=== PATIENT | female | born 1965 | race Caucasian/White ===

== ENCOUNTER 2017-10-05 09:34 | Emergency (ER) | payer MEDICAID ==
[~2017-10-05] VITALS: Ht 149.9 cm; Wt 57.4 kg
[~2017-10-05 09:34] MED LIST: ALBU18HF2 IH; ALBU8.5H4 IH; CEPH500C5 PO; HYDR-2514 PO; MIC100VS VG; NITR100C6 PO; NO HOME MEDS; PANT40TA39 PO; PHEN-716 PO; PHEN-873 PO; PRED20TA PO; TES100C PO; TRAM50TA2 PO; [UNRECOGNIZED DRUG - REMARK]
[2017-10-05] MEDS ORDERED: PRED20TA PO (10:01)
[2017-10-05] MEDS ORDERED: ALBU6.7H INH (10:01)
[2017-10-05] MEDS ORDERED: BENZ-38 PO (10:01)
[2017-10-05 10:11] VITALS: BP 124/89
== END 2017-10-05 10:12 | disposition home or self-care (01) ==
LOC: ER 09:35
DX: J06.9 Acute upper respiratory infection, unspecified (principal); J45.909 Unspecified asthma, uncomplicated; G89.29 Other chronic pain; Z90.710 Acquired absence of both cervix and uterus; F12.10 Cannabis abuse, uncomplicated; Z88.5 Allergy status to narcotic agent; Z88.6 Allergy status to analgesic agent; Z79.899 Other long term (current) drug therapy; Z59.0 Homelessness
CPT/HCPCS: 99283

== ENCOUNTER 2018-02-07 12:46 | Emergency (ER) | payer MEDICAID ==
[~2018-02-07] VITALS: Ht 502.6 cm; Wt 59.1 kg
[~2018-02-07 12:46] MED LIST changes: +ALBU6.7H INH; +BACDS PO; +PHEN-786 PO; -PHEN-873 PO
[2018-02-07 13:22] LABS: CLARITY,URINE TURBID (Clear); COLOR,URINE YELLOW (Yellow); GLUCOSE, URINE NEGATIVE (Neg); KETONES,URINE NEGATIVE (Neg); LEUKOCYTE ESTERASE ,URINE MODERATE (Neg); NITRITES, URINE NEGATIVE (Neg); OCCULT BLOOD,URINE LARGE (Neg); PROTEIN,URINE 30 mg/dl (Neg); UROBILINOGEN,URINE 0.2 E.U/dL (0.2-1.0)
[2018-02-07 13:27] LABS: UA COLLECTION TYPE CLN CATCH MIDSTREAM
[2018-02-07 13:35] LABS: MUCUS STRANDS FEW /LPF (Neg); SQUAMOUS EPITHELIAL CELL,UR FEW /LPF (FEW); TRANSITIONAL EPI CELLS,URINE FEW /HPF; WBC,URINE TNTC /HPF (0-4)
[2018-02-07] MEDS ORDERED: phenazopyridine 100mg tablet PO ONE (13:35)
[2018-02-07] MEDS ORDERED: HYDROcodone/acetaminophen 5mg/325mg tablet PO ONE (13:35)
[2018-02-07] MEDS ORDERED: ondansetron 4mg rapidly disintigrating tab PO ONE (13:35)
[2018-02-07 13:36] LABS: BACTERIA,URINE FEW /HPF (Neg); RBC,URINE 20-50 /HPF (0-2); WBC CLUMPS,URINE FEW /HPF (NEGATIVE)
[2018-02-07] MEDS ORDERED: azithromycin 250mg tablet PO ONE (13:45)
[2018-02-07] MEDS ORDERED: CefTRIAXone 1000mg IM Kit (w/lidocaine diluent) IM ONE (13:45)
[2018-02-07 13:49] VITALS: BP 114/83
[2018-02-07] MEDS ORDERED: PHEN-824 PO (13:56)
[2018-02-07] MEDS ORDERED: LEVO750T21 PO (13:56)
== END 2018-02-07 14:21 | disposition home or self-care (01) ==
LOC: ER 12:47
DX: N39.0 Urinary tract infection, site not specified (principal); A64 Unspecified sexually transmitted disease; J45.909 Unspecified asthma, uncomplicated; G89.29 Other chronic pain; F12.90 Cannabis use, unspecified, uncomplicated; Z90.710 Acquired absence of both cervix and uterus; Z88.1 Allergy status to other antibiotic agents; Z88.6 Allergy status to analgesic agent; Z88.5 Allergy status to narcotic agent; Z79.2 Long term (current) use of antibiotics; Z79.899 Other long term (current) drug therapy; Z59.0 Homelessness
CPT/HCPCS: 81001; 87088; 99284; J0696

== ENCOUNTER 2018-06-21 18:51 | Emergency (ER) | payer MEDICAID ==
[~2018-06-21] VITALS: Ht 149.9 cm; Wt 63.6 kg
[~2018-06-21 18:51] MED LIST changes: -BACDS PO; +PHEN-824 PO
[2018-06-21 19:03] VITALS: BP 132/85
[2018-06-21 19:41] LABS: COLOR,URINE ORANGE (Yellow); UA COLLECTION TYPE CLN CATCH MIDSTREAM
[2018-06-21 19:42] LABS: CLARITY,URINE CLEAR (Clear)
[2018-06-21 19:52] LABS: BACTERIA,URINE 1+ /HPF (Neg); SQUAMOUS EPITHELIAL CELL,UR MODERATE /LPF (FEW); WBC,URINE TNTC /HPF (0-4)
[2018-06-21] MEDS ORDERED: CefTRIAXone 250MG IM Kit w/LIDOcaine IM ONE (20:05)
[2018-06-21] MEDS ORDERED: azithromycin 250mg tablet PO ONE (20:15)
[2018-06-21] MEDS ORDERED: NITR100C6 PO (20:16)
[2018-06-21] MEDS ORDERED: AZIT-63 PO (20:27)
[2018-06-21] MEDS ORDERED: ACET-2119 PO (20:27)
[2018-06-21 20:28] LABS: URINE HCG NEGATIVE (NEG)
[2018-06-21] MEDS ORDERED: acetaminophen 325mg tablet PO ONE (20:40)
== END 2018-06-21 20:49 | disposition home or self-care (01) ==
LOC: ER 18:52
DX: N73.9 Female pelvic inflammatory disease, unspecified (principal); J45.909 Unspecified asthma, uncomplicated; G89.29 Other chronic pain; F12.90 Cannabis use, unspecified, uncomplicated; Z90.710 Acquired absence of both cervix and uterus; Z88.1 Allergy status to other antibiotic agents; Z88.5 Allergy status to narcotic agent; Z88.6 Allergy status to analgesic agent; Z79.899 Other long term (current) drug therapy; Z59.0 Homelessness
CPT/HCPCS: 36415; 81001; 81025; 87088; 87491; 87591; 96372; 99283; J0696

== ENCOUNTER 2018-09-20 14:40 | Emergency (ER) | payer MEDICAID ==
[~2018-09-20] VITALS: Ht 149.9 cm; Wt 86.4 kg
[2018-09-20 14:46] VITALS: BP 115/85
[2018-09-20] MEDS ORDERED: morphine 4 MG/ML inj SYRINge IM ONE (15:20)
[2018-09-20 15:51] LABS: BASOPHILS % (AUTO) 0.2 % (0-1); EOSINOPHILS # (AUTO) 0.1 X10'3 (0-0.9); EOSINOPHILS % (AUTO) 2.4 % (0-6); HEMATOCRIT 36.5 % (35.0-45.0); HEMOGLOBIN 11.9 g/dl (12.0-16.0); LYMPHOCYTES # (AUTO) 1.4 X10'3 (1.1-4.8); LYMPHOCYTES % (AUTO) 26.8 % (21-51); MEAN CORPUSCULAR HEMOGLOBIN 26.7 PG (27.0-31.0); MEAN CORPUSCULAR HGB CONC 32.6 g/dL (33.0-36.5); MEAN CORPUSCULAR VOLUME 81.7 FL (78-98); MONOCYTES # (AUTO) 0.6 X10'3 (0-0.9); MONOCYTES % (AUTO) 10.7 % (2-12); NEUTROPHILS # (AUTO) 3.2 X10'3 (1.8-7.7); NEUTROPHILS % (AUTO) 59.9 % (42-75); PLATELET COUNT 295 X10'3 (140-440); RED BLOOD COUNT 4.47 X10'6 (4.20-5.60); RED CELL DISTRIBUTION WIDTH 17.5 % (11.5-14.5); WHITE BLOOD COUNT 5.3 X10'3 (4.5-11.0)
[2018-09-20 15:51] LABS: URINE HCG NEGATIVE (NEG)
--- NOTE | 2018-09-20 15:57 | NUR ---
C/O PAIN X 1 MONTH, GETTING WORSE FOR THE PAST COUPLE OF DAYS. PAIN IN BLADDER TO UPPER ABDOMEN.
[2018-09-20 16:06] LABS: CLARITY,URINE CLOUDY (Clear); COLOR,URINE YELLOW (Yellow); GLUCOSE, URINE NEGATIVE (Neg); KETONES,URINE NEGATIVE (Neg); LEUKOCYTE ESTERASE ,URINE MODERATE (Neg); NITRITES, URINE NEGATIVE (Neg); OCCULT BLOOD,URINE TRACE-INTACT (Neg); PROTEIN,URINE NEGATIVE (Neg); UROBILINOGEN,URINE 0.2 E.U/dL (0.2-1.0)
[2018-09-20 16:10] LABS: ALANINE AMINOTRANSFERASE 39 U/L (12-78); ALBUMIN 3.3 G/DL (3.4-5.0); ALBUMIN/GLOBULIN RATIO 1.1 (1.1-1.5); ALKALINE PHOSPHATASE 96 IU/L (46-116); ANION GAP 6 (8-16); ASPARTATE AMINO TRANSFERASE 22 U/L (10-37); BILIRUBIN,TOTAL 0.2 MG/DL (0.1-1.0); BLOOD UREA NITROGEN 16 MG/DL (7-18); BUN/CREATININE RATIO 21.1 (6.6-38.0); CALCIUM 9.1 MG/DL (8.5-10.1); CHLORIDE 106 MMOL/L (99-107); CREATININE 0.76 MG/DL (0.40-0.90); GLUCOSE 90 MG/DL (70-104); POTASSIUM 4.2 MMOL/L (3.5-5.1); SODIUM 140 MMOL/L (135-145); TOTAL CARBON DIOXIDE 27.7 MMOL/L (24-32); TOTAL PROTEIN 6.3 G/DL (6.4-8.2); eGFR 80 ML/MIN
[2018-09-20 16:10] LABS: UA COLLECTION TYPE CLN CATCH MIDSTREAM
[2018-09-20] MEDS ORDERED: CEPH-572 PO (16:22)
[2018-09-20] MEDS ORDERED: FLUC150T PO (16:22)
[2018-09-20 16:42] LABS: SQUAMOUS EPITHELIAL CELL,UR FEW /LPF (FEW)
[2018-09-20 16:43] LABS: MUCUS STRANDS FEW /LPF (Neg); WBC CLUMPS,URINE MANY /HPF (NEGATIVE); WBC,URINE 30-50 /HPF (0-4)
[2018-09-20 16:44] LABS: BACTERIA,URINE FEW /HPF (Neg); RBC,URINE 0-2 /HPF (0-2)
== END 2018-09-20 16:48 | disposition home or self-care (01) ==
LOC: ER 14:42
DX: N20.0 Calculus of kidney (principal); K57.30 Diverticulosis of large intestine without perforation or abscess without bleeding; N39.0 Urinary tract infection, site not specified; R10.84 Generalized abdominal pain; J45.909 Unspecified asthma, uncomplicated; G89.29 Other chronic pain; F12.90 Cannabis use, unspecified, uncomplicated; Z59.0 Homelessness; Z98.890 Other specified postprocedural states; Z90.710 Acquired absence of both cervix and uterus; Z88.1 Allergy status to other antibiotic agents; Z88.6 Allergy status to analgesic agent; Z88.8 Allergy status to other drugs, medicaments and biological substances; Z79.899 Other long term (current) drug therapy
CPT/HCPCS: 36415; 74176; 80053; 81001; 81025; 85025; 87088; 96372; 99284; J2270; 99283

== ENCOUNTER 2018-10-11 13:48 | Emergency (ER) | payer MEDICAID ==
[~2018-10-11] VITALS: Ht 149.9 cm; Wt 65.3 kg
[~2018-10-11 13:48] MED LIST changes: -CEPH500C5 PO
[2018-10-11 17:37] LABS: CLARITY,URINE SLIGHTLY CLOUDY (Clear); COLOR,URINE YELLOW (Yellow); GLUCOSE, URINE NEGATIVE (Neg); KETONES,URINE NEGATIVE (Neg); LEUKOCYTE ESTERASE ,URINE SMALL (Neg); NITRITES, URINE NEGATIVE (Neg); OCCULT BLOOD,URINE SMALL (Neg); PROTEIN,URINE NEGATIVE (Neg); UROBILINOGEN,URINE 0.2 E.U/dL (0.2-1.0)
[2018-10-11 17:39] LABS: UA COLLECTION TYPE CLN CATCH MIDSTREAM
[2018-10-11 17:45] LABS: BACTERIA,URINE 1+ /HPF (Neg); HYALINE CASTS 0-3 /LPF (NEGATIVE); SQUAMOUS EPITHELIAL CELL,UR FEW /LPF (FEW); WBC CLUMPS,URINE FEW /HPF (NEGATIVE); WBC,URINE 50-100 /HPF (0-4)
[2018-10-11 17:46] LABS: CAL OXALATE CRYSTALS FEW /HPF (NEGATIVE)
[2018-10-11] MEDS ORDERED: morphine 4 MG/ML inj SYRINge IM ONE (18:05)
[2018-10-11] MEDS ORDERED: CefTRIAXone 1000mg IM Kit (w/lidocaine diluent) IM ONE (18:05)
[2018-10-11] MEDS ORDERED: LIDOcaine Viscous 15ml cup MM ONE (18:05)
[2018-10-11 18:21] VITALS: BP 120/79
[2018-10-11] MEDS ORDERED: CIPR-230 PO (19:39)
[2018-10-11] MEDS ORDERED: PHEN-716 PO (19:39)
[2018-10-11] MEDS ORDERED: LIDO15CR11 TOP (19:39)
== END 2018-10-11 20:00 | disposition home or self-care (01) ==
LOC: ER 13:48
DX: N39.0 Urinary tract infection, site not specified (principal); J45.909 Unspecified asthma, uncomplicated; G89.29 Other chronic pain; F12.90 Cannabis use, unspecified, uncomplicated; Z59.0 Homelessness; Z98.890 Other specified postprocedural states; Z90.710 Acquired absence of both cervix and uterus; Z88.1 Allergy status to other antibiotic agents; Z88.6 Allergy status to analgesic agent; Z88.5 Allergy status to narcotic agent; Z79.899 Other long term (current) drug therapy
CPT/HCPCS: 74176; 81001; 87088; 96372; 99284; J0696; J2270

== ENCOUNTER 2019-02-11 16:01 | Emergency (ER) | payer MEDICAID ==
[~2019-02-11] VITALS: Ht 149.9 cm; Wt 62.0 kg
[~2019-02-11 16:01] MED LIST changes: -ALBU6.7H INH; +ALBU6.7H9 INH; +CEPH-571 PO; +LIDO15CR11 TOP
[2019-02-11 16:09] VITALS: BP 114/68
[2019-02-11 16:30] LABS: CLARITY,URINE SLIGHTLY CLOUDY (Clear); COLOR,URINE YELLOW (Yellow); GLUCOSE, URINE NEGATIVE (Neg); KETONES,URINE TRACE mg/dl (Neg); LEUKOCYTE ESTERASE ,URINE MODERATE (Neg); NITRITES, URINE NEGATIVE (Neg); OCCULT BLOOD,URINE SMALL (Neg); PROTEIN,URINE 100 mg/dl (Neg); UROBILINOGEN,URINE 0.2 E.U/dL (0.2-1.0)
[2019-02-11 16:31] LABS: UA COLLECTION TYPE CLN CATCH MIDSTREAM
[2019-02-11 16:36] LABS: WBC,URINE TNTC /HPF (0-4)
[2019-02-11 16:37] LABS: BACTERIA,URINE FEW /HPF (Neg); MUCUS STRANDS FEW /LPF (Neg); SQUAMOUS EPITHELIAL CELL,UR FEW /LPF (FEW)
[2019-02-11 17:01] LABS: BASOPHILS % (AUTO) 0.7 % (0-1); EOSINOPHILS # (AUTO) 0.1 X10'3 (0-0.9); EOSINOPHILS % (AUTO) 2.6 % (0-6); HEMATOCRIT 37.2 % (35.0-45.0); HEMOGLOBIN 12.2 g/dl (12.0-16.0); LYMPHOCYTES # (AUTO) 1.4 X10'3 (1.1-4.8); LYMPHOCYTES % (AUTO) 28.5 % (21-51); MEAN CORPUSCULAR HEMOGLOBIN 26.8 PG (27.0-31.0); MEAN CORPUSCULAR HGB CONC 32.8 g/dL (33.0-36.5); MEAN CORPUSCULAR VOLUME 81.7 FL (78-98); MEAN PLATELET VOLUME 6.8 FL (7.4-10.4); MONOCYTES # (AUTO) 0.5 X10'3 (0-0.9); MONOCYTES % (AUTO) 9.6 % (2-12); NEUTROPHILS # (AUTO) 2.9 X10'3 (1.8-7.7); NEUTROPHILS % (AUTO) 58.6 % (42-75); PLATELET COUNT 348 X10'3 (140-440); RED BLOOD COUNT 4.56 X10'6 (4.20-5.60)
[2019-02-11] MEDS ORDERED: CefTRIAXone 250MG IM Kit w/LIDOcaine IM ONE (17:05)
[2019-02-11] MEDS ORDERED: azithromycin 250mg tablet PO ONE (17:05)
[2019-02-11 17:16] LABS: ALANINE AMINOTRANSFERASE 26 U/L (12-78); ALBUMIN 3.3 G/DL (3.4-5.0); ALBUMIN/GLOBULIN RATIO 1.1 (1.1-1.5); ALKALINE PHOSPHATASE 106 IU/L (46-116); ANION GAP 8 (8-16); ASPARTATE AMINO TRANSFERASE 14 U/L (10-37); BILIRUBIN,TOTAL 0.3 MG/DL (0.1-1.0); BLOOD UREA NITROGEN 18 MG/DL (7-18); BUN/CREATININE RATIO 21.2 (6.6-38.0); CALCIUM 9.4 MG/DL (8.5-10.1); CHLORIDE 109 MMOL/L (99-107); CREATININE 0.85 MG/DL (0.40-0.90); GLUCOSE 94 MG/DL (70-104); POTASSIUM 3.5 MMOL/L (3.5-5.1); SODIUM 144 MMOL/L (135-145); TOTAL CARBON DIOXIDE 26.6 MMOL/L (24-32); TOTAL PROTEIN 6.4 G/DL (6.4-8.2); eGFR 70 ML/MIN
[2019-02-11] MEDS ORDERED: CIPR-259 PO (17:43)
[2019-02-11 18:05] LABS: CLARITY,URINE CLOUDY (Clear); COLOR,URINE YELLOW (Yellow); GLUCOSE, URINE NEGATIVE (Neg); KETONES,URINE TRACE mg/dl (Neg); LEUKOCYTE ESTERASE ,URINE MODERATE (Neg); NITRITES, URINE NEGATIVE (Neg); OCCULT BLOOD,URINE TRACE-INTACT (Neg); PROTEIN,URINE 30 mg/dl (Neg); UROBILINOGEN,URINE 0.2 E.U/dL (0.2-1.0)
[2019-02-11 18:10] LABS: UA COLLECTION TYPE CLN CATCH MIDSTREAM
[2019-02-11 18:14] LABS: WBC,URINE TNTC /HPF (0-4)
[2019-02-11 18:18] LABS: BACTERIA,URINE FEW /HPF (Neg); MUCUS STRANDS FEW /LPF (Neg); RBC,URINE 0-2 /HPF (0-2); SQUAMOUS EPITHELIAL CELL,UR NONE SEEN /LPF (FEW)
[2019-02-11 18:19] LABS: CAL OXALATE CRYSTALS 1+ /HPF (NEGATIVE)
== END 2019-02-11 18:29 | disposition home or self-care (01) ==
LOC: ER 16:02
DX: N39.0 Urinary tract infection, site not specified (principal); J45.909 Unspecified asthma, uncomplicated; G89.29 Other chronic pain; F31.9 Bipolar disorder, unspecified; F12.90 Cannabis use, unspecified, uncomplicated; Z90.710 Acquired absence of both cervix and uterus; Z59.0 Homelessness; Z88.6 Allergy status to analgesic agent; Z88.1 Allergy status to other antibiotic agents; Z88.8 Allergy status to other drugs, medicaments and biological substances
CPT/HCPCS: 36415; 80053; 81001; 85025; 87077; 87088; 87186; 87491; 87591; 96372; 99283; J0696

== ENCOUNTER 2019-02-22 04:49 | Emergency (ER) | payer MEDICAID ==
[~2019-02-22] VITALS: Ht 149.9 cm; Wt 65.6 kg
[~2019-02-22 04:49] MED LIST changes: +CIPR-259 PO
[2019-02-22] MEDS ORDERED: famotidine 20mg tablet PO ONE (05:05)
[2019-02-22] MEDS ORDERED: LIDOcaine Viscous 15ml cup PO ONE (05:05)
[2019-02-22] MEDS ORDERED: pantoprazole 40mg Tablet.DR PO ONE (05:05)
[2019-02-22] MEDS ORDERED: mag hydrox/Alum hydrox/simeth 30ml oral suspension PO ONE (05:05)
--- NOTE | 2019-02-22 05:25 | NUR ---
PT REPORTS COMPLETE RESOLUTION OF SYMPTOMS. MD FINNEGAN AT BEDSIDE FOR RE-EVALUATION.
[2019-02-22] MEDS ORDERED: PANT-47 PO (05:26)
[2019-02-22 05:33] VITALS: BP 111/73
[2019-02-28] MEDS ORDERED: ARIP5TAB14 PO (06:39)
== END 2019-02-22 05:35 | disposition home or self-care (01) ==
LOC: ER 04:50
DX: K30 Functional dyspepsia (principal); K21.9 Gastro-esophageal reflux disease without esophagitis; J45.909 Unspecified asthma, uncomplicated; G89.29 Other chronic pain; F31.9 Bipolar disorder, unspecified; F12.90 Cannabis use, unspecified, uncomplicated; Z87.442 Personal history of urinary calculi; Z90.710 Acquired absence of both cervix and uterus; Z98.890 Other specified postprocedural states; Z59.0 Homelessness; Z88.1 Allergy status to other antibiotic agents; Z88.6 Allergy status to analgesic agent; Z88.5 Allergy status to narcotic agent; Z88.8 Allergy status to other drugs, medicaments and biological substances; Z79.899 Other long term (current) drug therapy
CPT/HCPCS: 93005; 99284

== ENCOUNTER 2019-02-28 05:56 | Day surgery (SDC) | payer MEDICAID ==
[~2019-02-28] VITALS: Ht 149.9 cm; Wt 63.6 kg
[~2019-02-28 05:56] MED LIST changes: -CIPR-259 PO; +PANT-47 PO
[2019-02-28 06:20] VITALS: BP 118/90
[2019-02-28] MEDS ORDERED: fentaNYL/PF 50MCG/1 ML 2ML syringe ONE ×2 (06:36→08:20)
[2019-02-28] MEDS ORDERED: diphenhydrAMINE 50 mg/ml inj ONE (06:37)
[2019-02-28] MEDS ORDERED: MELO-102 PO (06:37)
[2019-02-28] MEDS ORDERED: MIDAZolam 5mg/5ml vial ONE ×2 (06:37→08:20)
[2019-02-28] MEDS ORDERED: FERR-119 PO (06:37)
[2019-02-28] MEDS ORDERED: LIDOcaine Viscous 15ml cup ONE ×2 (06:37→08:18)
[2019-02-28] MEDS ORDERED: ACYC400T PO (06:38)
[2019-02-28] MEDS ORDERED: CIPR-259 PO (06:39)
[2019-02-28] MEDS ORDERED: TRAZ-251 PO (06:39)
[2019-02-28] MEDS ORDERED: ARIP5TAB4 PO (06:39)
[2019-02-28] MEDS ORDERED: OMEP20TA5 PO (06:40)
[2019-02-28] MEDS ORDERED: PANT40TA4 PO (06:40)
[2019-02-28 08:46] VITALS: BP 106/60
[2019-02-28 08:56] VITALS: BP 100/57
[2019-02-28 09:06] VITALS: BP 100/69
[2019-02-28 09:16] VITALS: BP 109/70
== END 2019-02-28 09:39 | disposition home or self-care (01) ==
LOC: GI LAB 05:56
PROVIDERS: ATTEND Internal Medicine Gastroenterology
DX: Z12.11 Encounter for screening for malignant neoplasm of colon (principal); R13.10 Dysphagia, unspecified; K22.2 Esophageal obstruction; K29.50 Unspecified chronic gastritis without bleeding; K22.70 Barrett's esophagus without dysplasia; K21.0 Gastro-esophageal reflux disease with esophagitis; Z87.19 Personal history of other diseases of the digestive system
CPT/HCPCS: 43239; 43248; 45378; 99152; 99153; J1200; J2250; J3010; J7040; A4620

== ENCOUNTER 2019-04-11 10:41 | Emergency (ER) | payer MEDICAID ==
[~2019-04-11] VITALS: Ht 149.9 cm; Wt 68.0 kg
[~2019-04-11 10:41] MED LIST changes: +ACYC400T PO; -ALBU18HF2 IH; -ALBU6.7H9 INH; -ALBU8.5H4 IH; +ARIP5TAB14 PO; -CEPH-571 PO; +CIPR-259 PO; +FERR-119 PO; -HYDR-2514 PO; -LIDO15CR11 TOP; +MELO-102 PO; -MIC100VS VG; -NITR100C6 PO; -NO HOME MEDS; +OMEP20TA5 PO; -PANT-47 PO; -PANT40TA39 PO; +PANT40TA4 PO; -PHEN-716 PO; -PHEN-786 PO; -PHEN-824 PO; -PRED20TA PO; -TES100C PO; -TRAM50TA2 PO; +TRAZ-251 PO; -[UNRECOGNIZED DRUG - REMARK]
[2019-04-11 11:51] VITALS: BP 114/81
[2019-04-11] MEDS ORDERED: NYSPWD TP (12:37)
== END 2019-04-11 12:45 | disposition home or self-care (01) ==
LOC: ER 10:42
DX: S01.21XA Laceration without foreign body of nose, initial encounter (principal); J45.909 Unspecified asthma, uncomplicated; K21.9 Gastro-esophageal reflux disease without esophagitis; G89.29 Other chronic pain; F31.9 Bipolar disorder, unspecified; F12.90 Cannabis use, unspecified, uncomplicated; Z87.442 Personal history of urinary calculi; Z90.710 Acquired absence of both cervix and uterus; Z59.0 Homelessness; Z98.890 Other specified postprocedural states; Z88.1 Allergy status to other antibiotic agents; Z88.6 Allergy status to analgesic agent; Z88.5 Allergy status to narcotic agent; Z79.899 Other long term (current) drug therapy; W54.0XXA Bitten by dog, initial encounter; Y93.89 Activity, other specified; Y92.89 Other specified places as the place of occurrence of the external cause; Y99.8 Other external cause status
CPT/HCPCS: 99283

== ENCOUNTER 2019-05-24 18:11 | Emergency (ER) | payer MEDICAID ==
[~2019-05-24] VITALS: Ht 149.9 cm; Wt 80.0 kg
[~2019-05-24 18:11] MED LIST changes: +NYSPWD TP
[2019-05-24 18:27] VITALS: BP 118/60
[2019-05-24] MEDS ORDERED: LORazepam 1 MG tablet PO ONE (19:15)
[2019-05-24] MEDS ORDERED: acetaminophen 325mg tablet PO ONE (19:15)
[2019-05-24] MEDS ORDERED: predniSONE 20 mg tablet PO ONE (19:15)
[2019-05-24] MEDS ORDERED: diphenhydrAMINE 25mg capsule PO ONE (19:15)
== END 2019-05-24 20:04 | disposition home or self-care (01) ==
LOC: ER 18:11
DX: G44.209 Tension-type headache, unspecified, not intractable (principal); J45.909 Unspecified asthma, uncomplicated; K21.9 Gastro-esophageal reflux disease without esophagitis; G89.29 Other chronic pain; F31.9 Bipolar disorder, unspecified; F12.90 Cannabis use, unspecified, uncomplicated; Z90.710 Acquired absence of both cervix and uterus; Z98.890 Other specified postprocedural states; Z87.442 Personal history of urinary calculi; Z59.0 Homelessness; Z88.1 Allergy status to other antibiotic agents; Z88.5 Allergy status to narcotic agent; Z88.8 Allergy status to other drugs, medicaments and biological substances; Z79.899 Other long term (current) drug therapy
CPT/HCPCS: 99284; J7512; Q0163

== ENCOUNTER 2019-06-16 12:50 | Emergency (ER) | payer MEDICAID ==
[~2019-06-16] VITALS: Ht 149.9 cm; Wt 66.0 kg
[2019-06-16 13:17] LABS: URINE HCG NEGATIVE (NEG)
[2019-06-16 13:20] LABS: CLARITY,URINE Bloody (Clear); COLOR,URINE RED (Yellow); UA COLLECTION TYPE CLN CATCH MIDSTREAM
[2019-06-16 13:28] LABS: BACTERIA,URINE 2+ /HPF (Neg); MUCUS STRANDS NONE SEEN /LPF (Neg); RBC,URINE TNTC /HPF (0-2); SQUAMOUS EPITHELIAL CELL,UR MODERATE /LPF (FEW); WBC CLUMPS,URINE MANY /HPF (NEGATIVE); WBC,URINE TNTC /HPF (0-4)
[2019-06-16 13:31] LABS: BASOPHILS % (AUTO) 0.6 % (0-1); EOSINOPHILS # (AUTO) 0.1 X10'3 (0-0.9); EOSINOPHILS % (AUTO) 3.3 % (0-6); HEMATOCRIT 35.3 % (35.0-45.0); HEMOGLOBIN 11.5 g/dl (12.0-16.0); LYMPHOCYTES # (AUTO) 1.2 X10'3 (1.1-4.8); MEAN CORPUSCULAR HEMOGLOBIN 25.3 PG (27.0-31.0); MEAN CORPUSCULAR HGB CONC 32.6 g/dL (33.0-36.5); MEAN CORPUSCULAR VOLUME 77.8 FL (78-98); MEAN PLATELET VOLUME 6.9 FL (7.4-10.4); MONOCYTES # (AUTO) 0.6 X10'3 (0-0.9); MONOCYTES % (AUTO) 13.8 % (2-12); NEUTROPHILS # (AUTO) 2.4 X10'3 (1.8-7.7); NEUTROPHILS % (AUTO) 54.3 % (42-75); PLATELET COUNT 327 X10'3 (140-440); RED BLOOD COUNT 4.53 X10'6 (4.20-5.60); RED CELL DISTRIBUTION WIDTH 15.4 % (11.5-14.5); WHITE BLOOD COUNT 4.4 X10'3 (4.5-11.0)
[2019-06-16 13:45] LABS: ALANINE AMINOTRANSFERASE 39 U/L (12-78); ALBUMIN 3.8 G/DL (3.4-5.0); ALBUMIN/GLOBULIN RATIO 1.2 (1.1-1.5); ALKALINE PHOSPHATASE 107 IU/L (46-116); ANION GAP 8 (8-16); ASPARTATE AMINO TRANSFERASE 24 U/L (10-37); BILIRUBIN,TOTAL 0.2 MG/DL (0.1-1.0); BLOOD UREA NITROGEN 12 MG/DL (7-18); CALCIUM 9.4 MG/DL (8.5-10.1); CHLORIDE 107 MMOL/L (99-107); CREATININE 0.75 MG/DL (0.40-0.90); GLUCOSE 79 MG/DL (70-104); LIPASE 144 U/L (73-393); POTASSIUM 3.8 MMOL/L (3.5-5.1); SODIUM 143 MMOL/L (135-145); eGFR 81 ML/MIN
[2019-06-16] MEDS ORDERED: SULF1TAB49 PO (14:01)
[2019-06-16] MEDS ORDERED: acetaminophen 325mg tablet PO ONE (14:10)
[2019-06-16 14:21] VITALS: BP 114/73
[2019-06-16] MEDS ORDERED: HYDR-3965 PO (14:34)
[2019-06-16] MEDS ORDERED: ONDA4TAB6 PO (14:34)
== END 2019-06-16 14:40 | disposition home or self-care (01) ==
LOC: ER 12:51
DX: N39.0 Urinary tract infection, site not specified (principal); K44.9 Diaphragmatic hernia without obstruction or gangrene; R59.1 Generalized enlarged lymph nodes; N20.0 Calculus of kidney; J45.909 Unspecified asthma, uncomplicated; K21.9 Gastro-esophageal reflux disease without esophagitis; G89.29 Other chronic pain; F31.9 Bipolar disorder, unspecified; F12.90 Cannabis use, unspecified, uncomplicated; R07.81 Pleurodynia; Z90.710 Acquired absence of both cervix and uterus; Z98.890 Other specified postprocedural states; Z59.0 Homelessness; Z88.1 Allergy status to other antibiotic agents; Z88.5 Allergy status to narcotic agent; Z88.6 Allergy status to analgesic agent; Z79.899 Other long term (current) drug therapy
CPT/HCPCS: 36415; 74176; 80053; 81001; 81025; 83605; 83690; 85025; 87088; 99284

== ENCOUNTER 2019-06-30 06:26 | Day surgery (SDC) | payer MEDICAID ==
[~2019-06-30] VITALS: Ht 149.9 cm; Wt 70.0 kg
[~2019-06-30 06:26] MED LIST changes: +HYDR-3965 PO; +ONDA4TAB6 PO
[2019-06-30] MEDS ORDERED: fentaNYL/PF 50MCG/1 ML 2ML syringe ONE (06:32)
[2019-06-30] MEDS ORDERED: LIDOcaine Viscous 15ml cup ONE (06:32)
[2019-06-30] MEDS ORDERED: MIDAZolam 5mg/5ml vial ONE (06:32)
[2019-06-30 06:40] VITALS: BP 118/76
[2019-06-30] MEDS ORDERED: ACYC-1 PO (06:42)
[2019-06-30] MEDS ORDERED: ARIP5TAB60 PO (06:43)
[2019-06-30] MEDS ORDERED: HYDR-3194 PO (06:44)
[2019-06-30] MEDS ORDERED: OMEP20CA15 PO (06:44)
[2019-06-30] MEDS ORDERED: ONDA4TAB12 PO (06:45)
[2019-06-30] MEDS ORDERED: PANT-47 PO (06:46)
[2019-06-30 08:30] VITALS: BP 108/76
[2019-06-30 08:40] VITALS: BP 100/74
[2019-06-30 08:50] VITALS: BP 99/70
[2019-06-30 09:00] VITALS: BP 115/80
== END 2019-06-30 09:15 | disposition home or self-care (01) ==
LOC: GI LAB 06:26
PROVIDERS: ATTEND Internal Medicine Gastroenterology
DX: R13.19 Other dysphagia (principal); K22.2 Esophageal obstruction; K22.70 Barrett's esophagus without dysplasia; K21.0 Gastro-esophageal reflux disease with esophagitis; K44.9 Diaphragmatic hernia without obstruction or gangrene
CPT/HCPCS: 43239; 43248; 99152; J2250; J3010; J7040; 99153; A4620

== ENCOUNTER 2019-07-08 22:19 | Emergency (ER) | payer MEDICAID ==
[~2019-07-08] VITALS: Ht 149.9 cm; Wt 69.3 kg
[~2019-07-08 22:19] MED LIST changes: +ACYC-1 PO; -ACYC400T PO; -ARIP5TAB14 PO; +ARIP5TAB60 PO; -CIPR-259 PO; +HYDR-3194 PO; -HYDR-3965 PO; -MELO-102 PO; -NYSPWD TP; +OMEP20CA15 PO; -OMEP20TA5 PO; +ONDA4TAB12 PO; -ONDA4TAB6 PO; +PANT-47 PO; -PANT40TA4 PO; -TRAZ-251 PO
[2019-07-08 23:13] LABS: CLARITY,URINE CLOUDY (Clear); COLOR,URINE RED (Yellow); GLUCOSE, URINE NEGATIVE (Neg); KETONES,URINE NEGATIVE (Neg); LEUKOCYTE ESTERASE ,URINE SMALL (Neg); NITRITES, URINE NEGATIVE (Neg); OCCULT BLOOD,URINE LARGE (Neg); PH,URINE 6.5 (4.8-8.0); PROTEIN,URINE 100 mg/dl (Neg)
[2019-07-08 23:14] LABS: UA COLLECTION TYPE CLN CATCH MIDSTREAM
[2019-07-08 23:20] LABS: URINE HCG NEGATIVE (NEG)
[2019-07-08 23:24] LABS: BACTERIA,URINE 2+ /HPF (Neg); CAL OXALATE CRYSTALS 1+ /HPF (NEGATIVE); MUCUS STRANDS MODERATE /LPF (Neg); RBC,URINE TNTC /HPF (0-2); SQUAMOUS EPITHELIAL CELL,UR FEW /LPF (FEW)
[2019-07-08 23:31] LABS: BASOPHILS # (AUTO) 0.1 X10'3 (0-0.2); BASOPHILS % (AUTO) 1.3 % (0-1); EOSINOPHILS # (AUTO) 0.1 X10'3 (0-0.9); EOSINOPHILS % (AUTO) 3.1 % (0-6); HEMATOCRIT 31.9 % (35.0-45.0); HEMOGLOBIN 10.5 g/dl (12.0-16.0); LYMPHOCYTES # (AUTO) 1.5 X10'3 (1.1-4.8); LYMPHOCYTES % (AUTO) 38.6 % (21-51); MEAN CORPUSCULAR HEMOGLOBIN 25.3 PG (27.0-31.0); MEAN CORPUSCULAR VOLUME 76.6 FL (78-98); MEAN PLATELET VOLUME 7.1 FL (7.4-10.4); MONOCYTES # (AUTO) 0.8 X10'3 (0-0.9); MONOCYTES % (AUTO) 19.8 % (2-12); NEUTROPHILS # (AUTO) 1.5 X10'3 (1.8-7.7); NEUTROPHILS % (AUTO) 37.2 % (42-75); PLATELET COUNT 319 X10'3 (140-440); RED BLOOD COUNT 4.16 X10'6 (4.20-5.60); RED CELL DISTRIBUTION WIDTH 15.8 % (11.5-14.5)
[2019-07-08 23:40] LABS: ALANINE AMINOTRANSFERASE 31 U/L (12-78); ALBUMIN 3.4 G/DL (3.4-5.0); ALKALINE PHOSPHATASE 118 IU/L (46-116); ANION GAP 11 (8-16); ASPARTATE AMINO TRANSFERASE 23 U/L (10-37); BILIRUBIN,TOTAL 0.2 MG/DL (0.1-1.0); BLOOD UREA NITROGEN 19 MG/DL (7-18); BUN/CREATININE RATIO 23.2 (6.6-38.0); CALCIUM 9.1 MG/DL (8.5-10.1); CHLORIDE 106 MMOL/L (99-107); CREATININE 0.82 MG/DL (0.40-0.90); GLUCOSE 97 MG/DL (70-104); LIPASE 199 U/L (73-393); POTASSIUM 3.9 MMOL/L (3.5-5.1); SODIUM 142 MMOL/L (135-145); TOTAL CARBON DIOXIDE 25.2 MMOL/L (24-32); TOTAL PROTEIN 6.7 G/DL (6.4-8.2); eGFR 73 ML/MIN
[2019-07-08 23:58] LABS: TROPONIN I < 0.04 NG/ML (0.0-0.05)
[2019-07-09] MEDS ORDERED: famotidine 20mg tablet PO ONE (00:20)
[2019-07-09] MEDS ORDERED: LIDOcaine Viscous 15ml cup MM ONE (00:20)
[2019-07-09] MEDS ORDERED: mag hydrox/Alum hydrox/simeth 30ml oral suspension PO ONE (00:20)
[2019-07-09 00:47] VITALS: BP 111/66
== END 2019-07-09 00:59 | disposition home or self-care (01) ==
LOC: ER 22:20
DX: K44.9 Diaphragmatic hernia without obstruction or gangrene (principal); J45.909 Unspecified asthma, uncomplicated; K21.9 Gastro-esophageal reflux disease without esophagitis; G89.29 Other chronic pain; F31.9 Bipolar disorder, unspecified; F12.90 Cannabis use, unspecified, uncomplicated; Z90.710 Acquired absence of both cervix and uterus; Z98.890 Other specified postprocedural states; Z59.0 Homelessness; Z88.5 Allergy status to narcotic agent; Z88.1 Allergy status to other antibiotic agents; Z88.8 Allergy status to other drugs, medicaments and biological substances
CPT/HCPCS: 36415; 80053; 81001; 81025; 83690; 84484; 85025; 87088; 93005; 99284

== ENCOUNTER 2019-07-12 14:35 | Emergency (ER) | payer MEDICAID ==
[~2019-07-12] VITALS: Ht 149.9 cm; Wt 69.5 kg
[2019-07-12 15:23] LABS: BASOPHILS % (AUTO) 0.9 % (0-1); EOSINOPHILS % (AUTO) 0 % (0-6); MEAN CORPUSCULAR VOLUME 75.7 FL (78-98); MONOCYTES # (AUTO) 0.7 X10'3 (0-0.9); PLATELET COUNT 248 X10'3 (140-440); WHITE BLOOD COUNT 3.3 X10'3 (4.5-11.0)
[2019-07-12 15:24] LABS: HEMATOCRIT 32.9 % (35.0-45.0); HEMOGLOBIN 10.8 g/dl (12.0-16.0); LYMPHOCYTES % (AUTO) 30.4 % (21-51); MEAN CORPUSCULAR HEMOGLOBIN 24.9 PG (27.0-31.0); MEAN CORPUSCULAR HGB CONC 32.9 g/dL (33.0-36.5); MEAN PLATELET VOLUME 7.1 FL (7.4-10.4); MONOCYTES % (AUTO) 21.5 % (2-12); NEUTROPHILS # (AUTO) 1.5 X10'3 (1.8-7.7); NEUTROPHILS % (AUTO) 47.2 % (42-75); RED BLOOD COUNT 4.35 X10'6 (4.20-5.60)
[2019-07-12 15:39] LABS: ALANINE AMINOTRANSFERASE 45 U/L (12-78); ALBUMIN 3.6 G/DL (3.4-5.0); ALBUMIN/GLOBULIN RATIO 1.1 (1.1-1.5); ALKALINE PHOSPHATASE 104 IU/L (46-116); ANION GAP 12 (8-16); ASPARTATE AMINO TRANSFERASE 53 U/L (10-37); BILIRUBIN,TOTAL 0.2 MG/DL (0.1-1.0); BLOOD UREA NITROGEN 17 MG/DL (7-18); BUN/CREATININE RATIO 15.9 (6.6-38.0); CHLORIDE 102 MMOL/L (99-107); CREATININE 1.07 MG/DL (0.40-0.90); GLUCOSE 88 MG/DL (70-104); LIPASE 374 U/L (73-393); POTASSIUM 3.2 MMOL/L (3.5-5.1); SODIUM 138 MMOL/L (135-145); TOTAL CARBON DIOXIDE 23.6 MMOL/L (24-32); TOTAL PROTEIN 6.9 G/DL (6.4-8.2); eGFR 54 ML/MIN
[2019-07-12 15:51] LABS: URINE HCG NEGATIVE (NEG)
[2019-07-12 16:00] LABS: ANISOCYTOSIS 1+; PLATELET ESTIMATE NORMAL; TOTAL CELLS COUNTED 100
[2019-07-12 16:01] LABS: GIANT PLATELET FEW; MICROCYTOSIS 1+
[2019-07-12 16:24] LABS: CLARITY,URINE BLOODY (Clear); COLOR,URINE RED (Yellow); UA COLLECTION TYPE CLN CATCH MIDSTREAM
[2019-07-12 16:29] LABS: RBC,URINE TNTC /HPF (0-2); WBC,URINE 30-50 /HPF (0-4)
[2019-07-12 16:31] LABS: BACTERIA,URINE 1+ /HPF (Neg); MUCUS STRANDS FEW /LPF (Neg); SQUAMOUS EPITHELIAL CELL,UR FEW /LPF (FEW)
[2019-07-12] MEDS ORDERED: morphine 4 MG/ML inj SYRINge IM ONE (19:20)
[2019-07-12] MEDS ORDERED: loperamide 2mg capsule PO ONE (19:20)
[2019-07-12] MEDS ORDERED: ondansetron 4mg rapidly disintigrating tab PO ONE (19:20)
[2019-07-12] MEDS ORDERED: HYDR-3965 PO (19:59)
[2019-07-12] MEDS ORDERED: LOPE2CAP PO (19:59)
[2019-07-12] MEDS ORDERED: ONDA8TAB6 PO (19:59)
[2019-07-12 21:05] VITALS: BP 108/65
== END 2019-07-12 21:06 | disposition home or self-care (01) ==
LOC: ER 14:36
DX: K52.9 Noninfective gastroenteritis and colitis, unspecified (principal); R10.84 Generalized abdominal pain; J45.909 Unspecified asthma, uncomplicated; K21.9 Gastro-esophageal reflux disease without esophagitis; G89.29 Other chronic pain; F12.90 Cannabis use, unspecified, uncomplicated; Z59.0 Homelessness; Z98.890 Other specified postprocedural states; Z90.710 Acquired absence of both cervix and uterus; Z87.442 Personal history of urinary calculi; Z88.1 Allergy status to other antibiotic agents; Z88.6 Allergy status to analgesic agent; Z88.5 Allergy status to narcotic agent; Z79.899 Other long term (current) drug therapy
CPT/HCPCS: 36415; 80053; 81001; 81025; 83690; 85025; 87077; 87088; 87186; 96372; 99283; J2270

== ENCOUNTER 2019-08-08 09:26 | Emergency (ER) | payer MEDICAID ==
[~2019-08-08] VITALS: Ht 149.9 cm; Wt 66.1 kg
[~2019-08-08 09:26] MED LIST changes: +HYDR-3965 PO; +LOPE2CAP PO; +ONDA8TAB6 PO
[2019-08-08 09:27] VITALS: BP 118/83
== END 2019-08-08 10:26 | disposition home or self-care (01) ==
LOC: ER 09:26
DX: N64.4 Mastodynia (principal); J45.909 Unspecified asthma, uncomplicated; K21.9 Gastro-esophageal reflux disease without esophagitis; G89.29 Other chronic pain; F12.90 Cannabis use, unspecified, uncomplicated; Z59.0 Homelessness; Z98.890 Other specified postprocedural states; Z90.710 Acquired absence of both cervix and uterus; Z87.442 Personal history of urinary calculi; Z88.1 Allergy status to other antibiotic agents; Z88.6 Allergy status to analgesic agent; Z88.5 Allergy status to narcotic agent; Z79.899 Other long term (current) drug therapy
CPT/HCPCS: 99281

== ENCOUNTER 2019-09-05 00:50 | Inpatient (IN) | payer MEDICAID ==
[~2019-09-05] VITALS: Ht 147.3 cm; Wt 69.4 kg
[~2019-09-05 00:50] MED LIST changes: -HYDR-3965 PO
[2019-09-05 01:32] LABS: CLARITY,URINE SLIGHTLY CLOUDY (Clear); COLOR,URINE STRAW (Yellow); GLUCOSE, URINE NEGATIVE (Neg); KETONES,URINE NEGATIVE (Neg); LEUKOCYTE ESTERASE ,URINE MODERATE (Neg); NITRITES, URINE NEGATIVE (Neg); OCCULT BLOOD,URINE TRACE-INTACT (Neg); PH,URINE 6.5 (4.8-8.0); PROTEIN,URINE TRACE mg/dl (Neg); UROBILINOGEN,URINE 0.2 E.U/dL (0.2-1.0)
[2019-09-05 01:51] LABS: UA COLLECTION TYPE NON-SPECIFIED
[2019-09-05 01:53] LABS: BACTERIA,URINE FEW /HPF (Neg); RBC,URINE NONE SEEN /HPF (0-2); RENAL CELLS, URINE FEW /HPF; SQUAMOUS EPITHELIAL CELL,UR FEW /LPF (FEW); WBC,URINE TNTC /HPF (0-4)
[2019-09-05 02:03] LABS: BASOPHILS % (AUTO) 0.4 % (0-1); EOSINOPHILS # (AUTO) 0.1 X10'3 (0-0.9); EOSINOPHILS % (AUTO) 1.4 % (0-6); HEMATOCRIT 31.8 % (35.0-45.0); HEMOGLOBIN 10.4 g/dl (12.0-16.0); LYMPHOCYTES # (AUTO) 1.3 X10'3 (1.1-4.8); LYMPHOCYTES % (AUTO) 23.5 % (21-51); MEAN CORPUSCULAR HGB CONC 32.5 g/dL (33.0-36.5); MEAN PLATELET VOLUME 7.3 FL (7.4-10.4); MONOCYTES # (AUTO) 0.5 X10'3 (0-0.9); MONOCYTES % (AUTO) 9.5 % (2-12); NEUTROPHILS # (AUTO) 3.5 X10'3 (1.8-7.7); NEUTROPHILS % (AUTO) 65.2 % (42-75); PLATELET COUNT 309 X10'3 (140-440); RED BLOOD COUNT 4.14 X10'6 (4.20-5.60); RED CELL DISTRIBUTION WIDTH 17.7 % (11.5-14.5); WHITE BLOOD COUNT 5.4 X10'3 (4.5-11.0)
[2019-09-05 02:10] LABS: ALANINE AMINOTRANSFERASE 31 U/L (12-78); ALBUMIN 3.8 G/DL (3.4-5.0); ALBUMIN/GLOBULIN RATIO 1.2 (1.1-1.5); ALKALINE PHOSPHATASE 104 IU/L (46-116); ANION GAP 8 (8-16); ASPARTATE AMINO TRANSFERASE 22 U/L (10-37); BILIRUBIN,TOTAL 0.1 MG/DL (0.1-1.0); BLOOD UREA NITROGEN 16 MG/DL (7-18); BUN/CREATININE RATIO 14.4 (6.6-38.0); CALCIUM 9.4 MG/DL (8.5-10.1); CHLORIDE 104 MMOL/L (99-107); CREATININE 1.11 MG/DL (0.40-0.90); GLUCOSE 109 MG/DL (70-104); LIPASE 181 U/L (73-393); POTASSIUM 4.4 MMOL/L (3.5-5.1); SODIUM 138 MMOL/L (135-145); TOTAL CARBON DIOXIDE 25.9 MMOL/L (24-32); TOTAL PROTEIN 7.1 G/DL (6.4-8.2); eGFR 51 ML/MIN
[2019-09-05 02:25] LABS: URINE HCG NEGATIVE (NEG)
[2019-09-05] MEDS ORDERED: normal saline 1000ML IV soln IVB ONE ×2 (02:30→03:45)
[2019-09-05] MEDS ORDERED: CefTRIAXone/D5W-Rocephin 1gm 50 ML IV ONE (02:30)
--- NOTE | 2019-09-05 03:02 | NUR ---
pt up to void 3 times in bsc. only aprox 30 cc's at a time. states continuous urgency and that she "feels like a i have a heartbeat in my bladder". Rocefin iv started and ns 1 liter. awaiting er .
--- NOTE | 2019-09-05 03:10 | NUR ---
DR. GARCIA UPDATED THAT PT WITH A LOT OF PAIN TO LOWER ABDOMEN. HE WILL SEE HER SHORTLY. STATES SHE HAS A VERY BAD UTI
[2019-09-05] MEDS ORDERED: phenazopyridine 100mg tablet PO ONE (03:15)
[2019-09-05] MEDS ORDERED: meperidine/PF 50mg/ml syringe IV ONE (03:45)
--- NOTE | 2019-09-05 03:59 | NUR ---
md reports to pt she will likely need admission. just given demorol 50 mg and 2 liters ns started. md reports he wants the 2 liters administered before cT scan.
[2019-09-05] MEDS ORDERED: ARIP15TA8 PO (04:02)
[2019-09-05] MEDS ORDERED: BACDS PO (04:03)
[2019-09-05] MEDS ORDERED: ondansetron/PF 4mg/2ml inj IV ONE ×2 (04:05→05:15)
--- NOTE | 2019-09-05 04:17 | NUR ---
pain now 7.5 out of 10 since receiving demoral.
--- NOTE | 2019-09-05 04:35 | NUR ---
pt vomiting after admin of demorol. verbalr received for zofran. awaiting 3rd liter ns to infused via bolus, then ok fr pt to go to ct
--- NOTE | 2019-09-05 05:13 | NUR ---
VERBAL RECEIVED FOR ADDITIONAL ZOFRAN.
[2019-09-05] MEDS ORDERED: ondansetron/PF 4mg/2ml inj IV PRN ×2 (05:25)
[2019-09-05] MEDS ORDERED: HYDROcodone/acetaminophen 10/325mg tab PO PRN (05:25)
[2019-09-05] MEDS ORDERED: magnesium 4gm in 100ml NS 100 ML IV PRN (05:25)
[2019-09-05] MEDS ORDERED: magnesium 2GM in 50ml NS 50 ML IV PRN (05:25)
[2019-09-05] MEDS ORDERED: acetaminophen 325mg tablet PO PRN ×2 (05:25)
[2019-09-05] MEDS ORDERED: magnesium Cl slow-release 64mg tablet PO PRN (05:25)
[2019-09-05] MEDS ORDERED: morphine 2 MG/ML inj. syringe IV PRN ×2 (05:25)
[2019-09-05] MEDS ORDERED: potassium Cl 20 mEq SR tablet PO PRN ×2 (05:25)
[2019-09-05] MEDS ORDERED: HYDROcodone/acetaminophen 5mg/325mg tablet PO PRN (05:25)
[2019-09-05] MEDS ORDERED: potassium CL 10mEq/100ml bag 100 ML IV PRN ×2 (05:25)
[2019-09-05] MEDS: normal saline 1000ml 1,000 ML IV SCH ×3 (05:47→23:03)
--- NOTE | 2019-09-05 05:51 | NUR ---
pts exrobsband/now friend whom she lives with in a hotel temporarily: sp cell# [phone]. pt awaiting ipa. reports murphy is low but her nausea is bad. given 2nd dose of zofran.
--- NOTE | 2019-09-05 06:54 | NUR ---
Patient in room ED 6. I have received report from Rita ruiz and had the opportunity to ask questions and assume patient care.
[2019-09-05 07:00] VITALS: BP 119/77
[2019-09-05] MEDS: CefTRIAXone 2gm/D5W 50ml 50 ML IV SCH (07:46)
[2019-09-05] MEDS: heparin, porcine 5000 units/ml vial SQ SCH ×2 (07:47→20:30)
[2019-09-05] MEDS: pantoprazole 40mg Tablet.DR PO SCH (07:47)
[2019-09-05] MEDS: K and/or MAG REPLACEMENT MC SCH ×2 (08:00→20:00)
[2019-09-05] MEDS ORDERED: proCHLORperazine 10 MG/2 ml inj IV PRN (10:45)
--- NOTE | 2019-09-05 10:56 | NUR ---
COMPAZINE GIVEN FOR NAUSEA AND VOMITING WILL CONTINUE TO MONITOR
[2019-09-05 11:00] VITALS: BP 115/70
--- NOTE | 2019-09-05 18:00 | NUR ---
patient settled down for rest of shift. No pain or N/V observed. Report given to Danyell JONES
--- NOTE | 2019-09-05 18:15 | NUR ---
Patient in room [facility]. I have received report from Fabiana JONES and had the opportunity to ask questions and assume patient care.
[2019-09-05 20:00] VITALS: BP 105/68
[2019-09-05] MEDS: lactobacillus rhamnosus 10,000 MMU CELLS/CAPSULE PO SCH (20:30)
[2019-09-05] MEDS ORDERED: Melatonin 3mg tablet PO SCH (23:25)
[2019-09-06] VITALS: BP 125/76
[2019-09-06 05:16] LABS: BASOPHILS % (AUTO) 0.4 % (0-1); EOSINOPHILS # (AUTO) 0.1 X10'3 (0-0.9); EOSINOPHILS % (AUTO) 1.9 % (0-6); HEMATOCRIT 29.5 % (35.0-45.0); HEMOGLOBIN 9.5 g/dl (12.0-16.0); LYMPHOCYTES # (AUTO) 1.5 X10'3 (1.1-4.8); LYMPHOCYTES % (AUTO) 40.9 % (21-51); MEAN CORPUSCULAR HEMOGLOBIN 24.9 PG (27.0-31.0); MEAN CORPUSCULAR HGB CONC 32.2 g/dL (33.0-36.5); MEAN CORPUSCULAR VOLUME 77.3 FL (78-98); MEAN PLATELET VOLUME 7.4 FL (7.4-10.4); MONOCYTES # (AUTO) 0.3 X10'3 (0-0.9); MONOCYTES % (AUTO) 8.6 % (2-12); NEUTROPHILS # (AUTO) 1.8 X10'3 (1.8-7.7); NEUTROPHILS % (AUTO) 48.2 % (42-75); PLATELET COUNT 256 X10'3 (140-440); RED BLOOD COUNT 3.82 X10'6 (4.20-5.60); RED CELL DISTRIBUTION WIDTH 17.7 % (11.5-14.5); WHITE BLOOD COUNT 3.7 X10'3 (4.5-11.0)
[2019-09-06 05:22] LABS: ALANINE AMINOTRANSFERASE 26 U/L (12-78); ALBUMIN/GLOBULIN RATIO 1.1 (1.1-1.5); ALKALINE PHOSPHATASE 80 IU/L (46-116); ANION GAP 6 (8-16); ASPARTATE AMINO TRANSFERASE 27 U/L (10-37); BILIRUBIN,TOTAL 0.2 MG/DL (0.1-1.0); BLOOD UREA NITROGEN 6 MG/DL (7-18); BUN/CREATININE RATIO 7.1 (6.6-38.0); CALCIUM 8.5 MG/DL (8.5-10.1); CHLORIDE 110 MMOL/L (99-107); CREATININE 0.85 MG/DL (0.40-0.90); GLUCOSE 83 MG/DL (70-104); MAGNESIUM 1.7 MG/DL (1.5-2.4); POTASSIUM 4.2 MMOL/L (3.5-5.1); SODIUM 140 MMOL/L (135-145); TOTAL CARBON DIOXIDE 23.8 MMOL/L (24-32); TOTAL PROTEIN 5.8 G/DL (6.4-8.2); eGFR 70 ML/MIN
[2019-09-06 06:00] VITALS: BP 115/55
--- NOTE | 2019-09-06 06:10 | NUR ---
Patient in room [facility]. I have received report from ROSELIA JONES and had the opportunity to ask questions and assume patient care.
--- NOTE | 2019-09-06 06:13 | NUR ---
Problems reprioritized. Patient report given, questions answered & plan of care reviewed with Katt JONES.
[2019-09-06] MEDS: normal saline 1000ml 1,000 ML IV SCH ×2 (06:59→13:24)
[2019-09-06] MEDS: heparin, porcine 5000 units/ml vial SQ SCH (07:00)
[2019-09-06] MEDS: pantoprazole 40mg Tablet.DR PO SCH (07:00)
[2019-09-06] MEDS: lactobacillus rhamnosus 10,000 MMU CELLS/CAPSULE PO SCH (07:00)
[2019-09-06] MEDS: CefTRIAXone 2gm/D5W 50ml 50 ML IV SCH (07:00)
[2019-09-06] MEDS: K and/or MAG REPLACEMENT MC SCH (08:00)
[2019-09-06 11:00] VITALS: BP 116/75
--- NOTE | 2019-09-06 13:45 | NUR ---
SPOKE WITH HOSPITALIST TO COMPLETE DISCHARGE.
--- NOTE | 2019-09-06 14:40 | NUR ---
PAGED HOSPITALIST REMINDING TO PUT IN DISCHARGED.
[2019-09-06] MEDS ORDERED: CIPR-230 PO (14:42)
--- NOTE | 2019-09-06 15:00 | NUR ---
PATIENT DISCHARGED HOME SAFELY WITH S/O WITH ALL BELONGINGS IN POSSESSION. PATIENT VERBALIZES UNDERSTANDING OF DC INSTRUCTIONS.
== END 2019-09-06 14:53 | disposition home or self-care (01) | DRG 465 ==
LOC: ER 00:51 → ED HOLD 05:22 → SUR 3N 06:45 → CMPBEDREQ 07:14
PROVIDERS: ADMIT Internal Medicine; ATTEND Family Medicine
DX: N20.0 Calculus of kidney (principal); N18.3 Chronic kidney disease, stage 3 (moderate); N30.90 Cystitis, unspecified without hematuria; F12.90 Cannabis use, unspecified, uncomplicated; J45.909 Unspecified asthma, uncomplicated; K21.9 Gastro-esophageal reflux disease without esophagitis; Z80.3 Family history of malignant neoplasm of breast; Z87.442 Personal history of urinary calculi; Z90.710 Acquired absence of both cervix and uterus; Z98.891 History of uterine scar from previous surgery; Z88.1 Allergy status to other antibiotic agents; Z88.8 Allergy status to other drugs, medicaments and biological substances; Z59.0 Homelessness
CPT/HCPCS: 36415; 74176; 80053; 81001; 81025; 83690; 83735; 85025; 87081; 87088; 96365; 96375; 97116; 97161; 97530; 99285; G0378; J0696; J0780; J1644; J2175; J2405; J7030

== ENCOUNTER 2020-01-09 13:30 | Emergency (ER) | payer MEDICAID ==
[~2020-01-09] VITALS: Ht 149.9 cm; Wt 71.4 kg
[~2020-01-09 13:30] MED LIST changes: -ACYC-1 PO; -ARIP5TAB60 PO; +DEXL30CA3 PO; -FERR-119 PO; -HYDR-3194 PO; -LOPE2CAP PO; -OMEP20CA15 PO; -ONDA4TAB12 PO; -ONDA8TAB6 PO
[2020-01-09] MEDS ORDERED: HYDROcodone/acetaminophen 5mg/325mg tablet PO ONE (14:30)
[2020-01-09] MEDS ORDERED: diazepam 5mg tablet PO ONE (14:30)
[2020-01-09] MEDS ORDERED: HYDR-3965 PO (14:35)
[2020-01-09] MEDS ORDERED: CYCL-1 PO (14:35)
[2020-01-09 15:23] VITALS: BP 100/74
== END 2020-01-09 15:26 | disposition home or self-care (01) ==
LOC: ER 13:31
DX: M54.5 Low back pain (principal); R10.30 Lower abdominal pain, unspecified; K21.9 Gastro-esophageal reflux disease without esophagitis; J45.909 Unspecified asthma, uncomplicated; G89.29 Other chronic pain; F31.9 Bipolar disorder, unspecified; F12.90 Cannabis use, unspecified, uncomplicated; Z90.710 Acquired absence of both cervix and uterus; Z98.890 Other specified postprocedural states; Z59.0 Homelessness; Z88.0 Allergy status to penicillin; Z88.6 Allergy status to analgesic agent; Z88.5 Allergy status to narcotic agent; Z79.899 Other long term (current) drug therapy
CPT/HCPCS: 99283

== ENCOUNTER 2020-01-11 05:14 | Inpatient (IN) | payer MEDICAID ==
[2020-01-04 15:20] LABS: BASOPHILS % (AUTO) 0.4 % (0-1); EOSINOPHILS # (AUTO) 0.1 X10'3 (0-0.9); EOSINOPHILS % (AUTO) 1.5 % (0-6); LYMPHOCYTES # (AUTO) 1.4 X10'3 (1.1-4.8); LYMPHOCYTES % (AUTO) 24.8 % (21-51); MEAN CORPUSCULAR VOLUME 70.9 FL (78-98); MEAN PLATELET VOLUME 7.4 FL (7.4-10.4); MONOCYTES # (AUTO) 0.5 X10'3 (0-0.9); MONOCYTES % (AUTO) 8.5 % (2-12); NEUTROPHILS # (AUTO) 3.6 X10'3 (1.8-7.7); NEUTROPHILS % (AUTO) 64.8 % (42-75); PRE OP HEMATOCRIT 33.9 % (35.0-45.0); PRE OP PLATELET COUNT 345 X10'3 (140-440); RED BLOOD COUNT 4.78 X10'6 (4.20-5.60); RED CELL DISTRIBUTION WIDTH 16.2 % (11.5-14.5)
[2020-01-04 15:22] LABS: PRE OP HEMOGLOBIN 10.5 g/dL (12.0-16.0)
[2020-01-04 15:33] LABS: PRE OP PROTIME 10.1 SECONDS (9.0-12.0)
[2020-01-04 15:43] LABS: ALBUMIN 3.8 G/DL (3.4-5.0); ALBUMIN/GLOBULIN RATIO 1.1 (1.1-1.5); ALKALINE PHOSPHATASE 115 IU/L (46-116); BLOOD UREA NITROGEN 17 MG/DL (7-18); BUN/CREATININE RATIO 23.9 (6.6-38.0); CALCIUM 9.3 MG/DL (8.5-10.1); CHLORIDE 108 MMOL/L (99-107); CREATININE 0.71 MG/DL (0.40-0.90); PRE OP ALT 24 U/L (30-65); PRE OP ANION GAP 7 (8-16); PRE OP AST 17 U/L (10-37); PRE OP BILIRUB, TOTAL 0.3 MG/DL (0.0-1.0); PRE OP GLUCOSE 93 MG/DL (70-104); PRE OP POTASSIUM 3.9 MMOL/L (3.4-5.1); PRE OP SODIUM 141 MMOL/L (135-145); TOTAL CARBON DIOXIDE 25.7 MMOL/L (24-32); TOTAL PROTEIN 7.4 G/DL (6.4-8.2); eGFR 86 ML/MIN
[~2020-01-11] VITALS: Ht 148.6 cm; Wt 71.0 kg
[2020-01-11] VITALS (20 sets, daily range): BP systolic 102–123; BP diastolic 69–85
[~2020-01-11 05:14] MED LIST changes: +CYCL-1 PO; +HYDR-3965 PO; +ringers solution, lacted 1,000 ML IV SCH
[2020-01-11] MEDS ORDERED: ceFAZolin 2gm in dextrose, iso 50 ML IV ONE (05:30)
[2020-01-11] MEDS ORDERED: famotidine 20mg tablet PO ONE (05:30)
[2020-01-11] MEDS ORDERED: LIDOcaine 1% (10mg/ml) 2ml vial ONE (06:33)
[2020-01-11] MEDS ORDERED: LIDOcaine 1% 30ml preserv. free vial ONE (06:41)
[2020-01-11] MEDS ORDERED: BUPIVAcaine/PF 2.5 mg/ml (0.25%) 30ml vial ONE (06:41)
[2020-01-11] MEDS ORDERED: midazolam 2 mg/2 ml injection ONE (07:22)
[2020-01-11] MEDS ORDERED: propofol inj 20 ML IV ONE (07:22)
[2020-01-11] MEDS ORDERED: rocuronium 10mg/ml inj IV ONE ×2 (07:22→08:42)
[2020-01-11] MEDS ORDERED: fentaNYL /PF 50mcg/ml 5ml ampule ONE (07:22)
[2020-01-11] MEDS ORDERED: dexamethasone sod phosphate 4mg/ml inj. ONE (07:26)
[2020-01-11] MEDS ORDERED: ringers solution, lacted 1,000 ML IV SCH (07:36)
[2020-01-11] MEDS ORDERED: ondansetron/PF 4mg/2ml inj IV PRN ×2 (07:40→11:30)
[2020-01-11] MEDS ORDERED: proCHLORperazine 10 MG/2 ml inj IV PRN (07:40)
[2020-01-11] MEDS ORDERED: morphine 2 MG/ML inj. syringe IV PRN (07:40)
[2020-01-11] MEDS ORDERED: meperidine/PF 25mg/ml syringe IV PRN ×3 (07:40)
[2020-01-11] MEDS ORDERED: sevoflurane 250ml liquid IH ONE (07:43)
[2020-01-11] MEDS ORDERED: ondansetron/PF 4mg/2ml inj ONE (10:56)
[2020-01-11] MEDS ORDERED: glycopyrrolate 0.2mg/ml inj ONE (10:58)
[2020-01-11] MEDS ORDERED: neostigmine methylsulfate 1 MG/ML 10ml vial ONE (10:58)
--- NOTE | 2020-01-11 11:22 | NUR ---
Received from OR via SURGICAL BED , accompanied by Anesthesiologist JOANN and report given by Anesthesiolgist. PATIENT WITH 20GPIV IN LEFT FOREARM. DENIES PAIN AT THIS TIME. 5 LAP SITES TO ABDOMEN THAT ARE ALL CDI. NO DRESSING PRESENT TO ABDOMEN. SCDS DONNED UPON ARRIVAL. 10L MASK ON WITH 100% WSASTURATIONS. 20G PIV IN LEFT UE RUNNING LR AT 100. VSS AT THIS TIME. WILL CONTINUE TO ASSESS. Addendum: 01/11/20 at 1140 by Sajan Andrade RN, RN Amended: Links added.
[2020-01-11] MEDS ORDERED: CADD PCA waste documentation MC PRN (11:30)
[2020-01-11] MEDS ORDERED: naloxone 0.4 mg/ml inj IV PRN (11:30)
[2020-01-11] MEDS ORDERED: zolpidem 5mg tablet PO PRN (11:30)
[2020-01-11] MEDS: morphine 4 MG/ML inj SYRINge IV PRN ×2 (11:43→12:00)
[2020-01-11] MEDS: morphine/NS 5 mg/ml CADD 50 ML IV SCH ×7 (12:33→23:00)
--- NOTE | 2020-01-11 12:52 | NUR ---
ALL CRITERIA FOR TRANSFER TO THE FLOOR HAS BEEN ACHIEVED. REPORT GIVEN AND ALL QUESTIONS ANSWERED, VSS. BED LOW 2 RAILS UP, CALL LIGHT PRESNET AND PATIENT HOOKED UP TO ALL LINES AND VSS. PATIENTS KAREN GOULD PRESENT TO ACCEPT CARE. PATIENT WITH C.O. PAIN UPON ARRIVAL TO SURGICAL FLOOR, VSS, ONE BAG OF BELONGINGS IN CLOSET OF 345A AND A WHEELCHAIR SITS OUT OF ROOM PRESCRIPTION BENEFIT SPECIALIST TATA ASKED TO DON A PATIENT NAME STICKER TO WHEELCHAIR. \ CARE TURNED OVER TO KAREN GOULD Addendum: 01/11/20 at 1306 by Sajan Melendez - KAREN JONES Amended: Links added.
--- NOTE | 2020-01-11 13:15 | NUR ---
Patient in room [facility]. I have received report from Sajan JONES and had the opportunity to ask questions and assume patient care.patient orientated to room appears to be in stable condition. Commenced on post ops
--- NOTE | 2020-01-11 13:20 | NUR ---
patient has five lapsites with glue no drainage observed. On MS cadd with good pain control. IDC in place draining clear yellow urine. will continue to monitor.
[2020-01-11] MEDS: ceFAZolin inj. 1,000 MG in dextrose 5%-water 50ml 50 ML IV SCH (15:42)
[2020-01-11] MEDS ORDERED: cyclobenzaprine 10mg tablet PO PRN (16:25)
--- NOTE | 2020-01-11 17:57 | NUR ---
patient stable sleeping .
--- NOTE | 2020-01-11 17:59 | NUR ---
Problems reprioritized. Patient report given, questions answered & plan of care reviewed with Lilia Magallanes RN.
--- NOTE | 2020-01-11 18:15 | NUR ---
Patient in room [facility]. I have received report from KAREN Jung and had the opportunity to ask questions and assume patient care.
--- NOTE | 2020-01-11 18:16 | NUR ---
Problems reprioritized. Patient report given, questions answered & plan of care reviewed with Lilia Magallanes RN.
[2020-01-11] MEDS: albuterol 2.5 MG/3 ML nebule NEB SCH (20:14)
[2020-01-11] MEDS: Potassium Cl inj 20 MEQ in ringers solution, lacted 1,000 ML IV SCH (21:20)
[2020-01-11] MEDS: enoxaparin 30mg/0.3ml syringe SQ SCH (21:21)
[2020-01-12] VITALS: BP 145/72
[2020-01-12] MEDS: Potassium Cl inj 20 MEQ in ringers solution, lacted 1,000 ML IV SCH ×2 (00:17→04:44)
[2020-01-12] MEDS: ceFAZolin inj. 1,000 MG in dextrose 5%-water 50ml 50 ML IV SCH ×2 (00:19→08:01)
[2020-01-12] MEDS: morphine/NS 5 mg/ml CADD 50 ML IV SCH ×6 (01:00→11:00)
[2020-01-12 04:47] LABS: BASOPHILS % (AUTO) 0.2 % (0-1); EOSINOPHILS % (AUTO) 0 % (0-6); HEMATOCRIT 28.5 % (35.0-45.0); HEMOGLOBIN 8.9 g/dl (12.0-16.0); LYMPHOCYTES % (AUTO) 12.1 % (21-51); MEAN CORPUSCULAR HGB CONC 31.2 g/dL (33.0-36.5); MEAN CORPUSCULAR VOLUME 70.7 FL (78-98); MEAN PLATELET VOLUME 7.8 FL (7.4-10.4); MONOCYTES % (AUTO) 11.8 % (2-12); NEUTROPHILS # (AUTO) 6.4 X10'3 (1.8-7.7); NEUTROPHILS % (AUTO) 75.9 % (42-75); PLATELET COUNT 261 X10'3 (140-440); RED BLOOD COUNT 4.04 X10'6 (4.20-5.60); RED CELL DISTRIBUTION WIDTH 16.1 % (11.5-14.5); WHITE BLOOD COUNT 8.5 X10'3 (4.5-11.0)
[2020-01-12 04:51] VITALS: BP 96/65
[2020-01-12 04:56] LABS: ALBUMIN 2.9 G/DL (3.4-5.0); ANION GAP 8 (8-16); BLOOD UREA NITROGEN 11 MG/DL (7-18); BUN/CREATININE RATIO 13.6 (6.6-38.0); CALCIUM 8.9 MG/DL (8.5-10.1); CHLORIDE 105 MMOL/L (99-107); CREATININE 0.81 MG/DL (0.40-0.90); GLUCOSE 117 MG/DL (70-104); POTASSIUM 4.2 MMOL/L (3.5-5.1); SODIUM 138 MMOL/L (135-145); TOTAL CARBON DIOXIDE 25.2 MMOL/L (24-32); eGFR 74 ML/MIN
--- NOTE | 2020-01-12 06:00 | NUR ---
f/c d/c'd at 0520, tolerated well
--- NOTE | 2020-01-12 06:29 | NUR ---
Problems reprioritized. Patient report given, questions answered & plan of care reviewed with KAREN Xiong.
--- NOTE | 2020-01-12 06:30 | NUR ---
Patient in room [facility]. I have received report from Lilia Khan RN and had the opportunity to ask questions and assume patient care.
[2020-01-12 07:00] VITALS: BP 118/59
[2020-01-12] MEDS: albuterol 2.5 MG/3 ML nebule NEB SCH ×4 (09:04→19:00)
--- NOTE | 2020-01-12 09:55 | NUR ---
Patient off the unit to [facility]
[2020-01-12 12:00] VITALS: BP 102/69
[2020-01-12] MEDS: enoxaparin 30mg/0.3ml syringe SQ SCH ×2 (12:23→19:59)
[2020-01-12] MEDS ORDERED: oxyCODONE/APAP 5-325mg tablet PO PRN (13:30)
--- NOTE | 2020-01-12 14:22 | NUR ---
Pt ate a 100% yogurt Addendum: 01/12/20 at 1422 by Daphney Herron STUDENT CLIFF Amended: Links added.
--- NOTE | 2020-01-12 14:47 | NUR ---
Pt has dyspnea with exertion and increased pain Addendum: 01/12/20 at 1452 by Daphney CORONADO Amended: Links added.
--- NOTE | 2020-01-12 15:17 | NUR ---
SVN missed due to nausea and vomiting
--- NOTE | 2020-01-12 16:44 | NUR ---
Patient up out Addendum: 01/12/20 at 1647 by Inga Burger RN of bed. Moaning in pain, states she won't walk any more unless she gets more pain medication. Patient was a 0/10 while in bed just before walking.
--- NOTE | 2020-01-12 16:47 | NUR ---
Nutrition consult: Pt s/p Paulo fundoplication. Pt seen at bedside provided with written and verbal nutrition therapy education which includes full liquid diet nutrition therapy, a list of fiber content in foods, and ONS coupons. Pt verbalized understanding and denies questions at this time. RD contact information provided. Pt endorses a good appetite and reports eating all of her full liquid meal except for the milk and gelatin. Pt denies food allergies. Will continue to follow. Addendum: 01/12/20 at [address] Amended: Links added.
--- NOTE | 2020-01-12 17:26 | NUR ---
Student documentation and Medication Administration documentation: I have reviewed all interventions, assessments performed and documented, all medication-pass' in the time frame of 9968-9353, all medications were reviewed, dispensed, administered and documented per hospital policy by Daphney GOLD from [facility].
[2020-01-12 18:00] VITALS: BP 114/74
--- NOTE | 2020-01-12 18:30 | NUR ---
Patient in room [facility]. I have received report from KAREN Xiong and had the opportunity to ask questions and assume patient care.
--- NOTE | 2020-01-12 18:32 | NUR ---
Problems reprioritized. Patient report given, questions answered & plan of care reviewed with Yeimi JONES.
[2020-01-12] MEDS: HYDROmorphone inj. 0.5 MG/0.5 ML DISP.SYRIN IV PRN ×2 (19:54→23:17)
[2020-01-13] VITALS: BP 101/66
[2020-01-13] MEDS: HYDROmorphone inj. 0.5 MG/0.5 ML DISP.SYRIN IV PRN (05:26)
--- NOTE | 2020-01-13 06:15 | NUR ---
Patient in room [facility]. I have received report from KAREN Jalloh and had the opportunity to ask questions and assume patient care.
[2020-01-13 06:27] LABS: BASOPHILS % (AUTO) 0.2 % (0-1); EOSINOPHILS # (AUTO) 0.1 X10'3 (0-0.9); EOSINOPHILS % (AUTO) 2.1 % (0-6); HEMOGLOBIN 8.7 g/dl (12.0-16.0); LYMPHOCYTES % (AUTO) 17.4 % (21-51); MEAN CORPUSCULAR HGB CONC 31.1 g/dL (33.0-36.5); MEAN CORPUSCULAR VOLUME 70.6 FL (78-98); MEAN PLATELET VOLUME 7.7 FL (7.4-10.4); MONOCYTES # (AUTO) 0.7 X10'3 (0-0.9); MONOCYTES % (AUTO) 11.7 % (2-12); NEUTROPHILS # (AUTO) 4.1 X10'3 (1.8-7.7); NEUTROPHILS % (AUTO) 68.6 % (42-75); PLATELET COUNT 234 X10'3 (140-440); RED BLOOD COUNT 3.96 X10'6 (4.20-5.60); RED CELL DISTRIBUTION WIDTH 16.8 % (11.5-14.5)
[2020-01-13 06:30] VITALS: BP 106/67
[2020-01-13 06:43] LABS: ANION GAP 8 (8-16); BLOOD UREA NITROGEN 9 MG/DL (7-18); BUN/CREATININE RATIO 11.8 (6.6-38.0); CALCIUM 8.9 MG/DL (8.5-10.1); CHLORIDE 106 MMOL/L (99-107); CREATININE 0.76 MG/DL (0.40-0.90); GLUCOSE 92 MG/DL (70-104); SODIUM 141 MMOL/L (135-145); TOTAL CARBON DIOXIDE 27.4 MMOL/L (24-32); eGFR 80 ML/MIN
--- NOTE | 2020-01-13 06:47 | NUR ---
Problems reprioritized. Patient report given, questions answered & plan of care reviewed with KAREN Maharaj.
[2020-01-13] MEDS: albuterol 2.5 MG/3 ML nebule NEB SCH ×2 (07:54→11:11)
[2020-01-13] MEDS: enoxaparin 30mg/0.3ml syringe SQ SCH (08:54)
[2020-01-13] MEDS ORDERED: HYDR-4353 PO (11:20)
[2020-01-13 12:55] VITALS: BP 100/65
--- NOTE | 2020-01-13 15:50 | NUR ---
DC inst provided to pt. IV DC'd, tip intact. All belongings sent w/pt. Pt wheeled to front lobby in own WC.
== END 2020-01-13 15:55 | disposition home health service (06) | DRG 220 ==
LOC: PAS 05:14 → SUR 3N 11:26
PROVIDERS: ADMIT Surgery; ATTEND Surgery
PROC: 8E0W4CZ Robotic Assisted Procedure of Trunk Region, Percutaneous Endoscopic Approach (ICD-10-PCS; 2020-01-11)
PROC: 0DV44ZZ Restriction of Esophagogastric Junction, Percutaneous Endoscopic Approach (ICD-10-PCS; 2020-01-11)
PROC: 0BQT4ZZ Repair Diaphragm, Percutaneous Endoscopic Approach (ICD-10-PCS; principal; 2020-01-11 07:43)
DX: K44.9 Diaphragmatic hernia without obstruction or gangrene (principal); Z79.899 Other long term (current) drug therapy
CPT/HCPCS: 36415; 71045; 74220; 80048; 80053; 82948; 85025; 85610; 85730; 86885; 86900; 86901; 87635; 94640; 94667; 94760; A4215; A4618; C1758; G0378; J0690; J1100; J1170; J1650; J2001; J2250; J2270; J2405; J2704; J2710; J3010; J3480; J3490; J7060; J7120

== ENCOUNTER 2020-04-27 12:00 | Emergency (ER) | payer MEDICAID ==
[~2020-04-27] VITALS: Ht 147.3 cm; Wt 70.0 kg
[~2020-04-27 12:00] MED LIST changes: -DEXL30CA3 PO; -HYDR-3965 PO; -PANT-47 PO; -ringers solution, lacted 1,000 ML IV SCH
[2020-04-27] MEDS ORDERED: PENI500T2 PO (12:31)
[2020-04-27 12:59] VITALS: BP 154/94
[2020-04-27] MEDS ORDERED: azithromycin 250mg tablet PO ONE (13:00)
[2020-04-27] MEDS ORDERED: CefTRIAXone 250MG IM Kit w/LIDOcaine IM ONE (13:00)
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
== END 2020-04-27 13:17 | disposition home or self-care (01) ==
LOC: ER 12:00
DX: J02.9 Acute pharyngitis, unspecified (principal); J45.909 Unspecified asthma, uncomplicated; G89.29 Other chronic pain; F31.9 Bipolar disorder, unspecified; F12.10 Cannabis abuse, uncomplicated; Z59.0 Homelessness; Z87.442 Personal history of urinary calculi; Z88.1 Allergy status to other antibiotic agents; Z88.5 Allergy status to narcotic agent; Z98.890 Other specified postprocedural states; Z79.899 Other long term (current) drug therapy
CPT/HCPCS: 36415; 87491; 87591; 96372; 99283; J0696

== ENCOUNTER 2020-06-09 19:53 | Emergency (ER) | payer MEDICAID ==
[~2020-06-09] VITALS: Ht 147.3 cm; Wt 71.8 kg
[2020-06-09 19:56] VITALS: BP 135/92
[2020-06-09] MEDS ORDERED: ketorolac tromethamine 15mg/ml inj. IM ONE (20:40)
== END 2020-06-09 22:14 | disposition home or self-care (01) ==
LOC: ER 19:54
DX: M79.645 Pain in left finger(s) (principal); J45.909 Unspecified asthma, uncomplicated; K21.9 Gastro-esophageal reflux disease without esophagitis; G89.29 Other chronic pain; F12.90 Cannabis use, unspecified, uncomplicated; Z87.440 Personal history of urinary (tract) infections; Z98.891 History of uterine scar from previous surgery; Z90.710 Acquired absence of both cervix and uterus; Z59.0 Homelessness
CPT/HCPCS: 29125; 73130; 96372; 99283; J1885

== ENCOUNTER 2021-02-21 15:49 | Emergency (ER) | payer MEDICAID ==
[~2021-02-21] VITALS: Ht 149.9 cm; Wt 63.6 kg
[2021-02-21] MEDS ORDERED: ondansetron 4mg rapidly disintigrating tab PO ONE (16:55)
[2021-02-21] MEDS ORDERED: normal saline 1000ML IV soln IV ONE (16:55)
[2021-02-21 16:57] LABS: CLARITY,URINE CLOUDY (Clear); COLOR,URINE ORANGE (Yellow); UA COLLECTION TYPE CLN CATCH MIDSTREAM
[2021-02-21 17:03] LABS: BACTERIA,URINE 2+ /HPF (Neg); MUCUS STRANDS FEW /LPF (Neg); RBC,URINE 0-2 /HPF (0-2); SQUAMOUS EPITHELIAL CELL,UR MODERATE /LPF (FEW); WBC CLUMPS,URINE MANY /HPF (NEGATIVE); WBC,URINE TNTC /HPF (0-4)
[2021-02-21 17:21] LABS: BASOPHILS % (AUTO) 0.1 % (0-1); EOSINOPHILS % (AUTO) 0.1 % (0-6); HEMATOCRIT 42.1 % (35.0-45.0); HEMOGLOBIN 14.2 g/dl (12.0-16.0); LYMPHOCYTES % (AUTO) 34.1 % (21-51); MEAN CORPUSCULAR HGB CONC 33.6 g/dL (33.0-36.5); MEAN CORPUSCULAR VOLUME 83.1 FL (78-98); MEAN PLATELET VOLUME 8.1 FL (7.4-10.4); MONOCYTES # (AUTO) 0.4 X10'3 (0-0.9); MONOCYTES % (AUTO) 14.8 % (2-12); NEUTROPHILS # (AUTO) 1.4 X10'3 (1.8-7.7); NEUTROPHILS % (AUTO) 50.9 % (42-75); PLATELET COUNT 165 X10'3 (140-440); RED BLOOD COUNT 5.07 X10'6 (4.20-5.60); RED CELL DISTRIBUTION WIDTH 14.4 % (11.5-14.5); WHITE BLOOD COUNT 2.8 X10'3 (4.5-11.0)
[2021-02-21 17:27] LABS: ALANINE AMINOTRANSFERASE 39 U/L (12-78); ALBUMIN 3.4 G/DL (3.4-5.0); ALBUMIN/GLOBULIN RATIO 0.9 (1.1-1.5); ALKALINE PHOSPHATASE 145 IU/L (46-116); ANION GAP 13 (8-16); ASPARTATE AMINO TRANSFERASE 41 U/L (10-37); BILIRUBIN,TOTAL 0.5 MG/DL (0.1-1.0); BLOOD UREA NITROGEN 16 MG/DL (7-18); CALCIUM 9.1 MG/DL (8.5-10.1); CHLORIDE 102 MMOL/L (99-107); CREATININE 0.89 MG/DL (0.40-0.90); GLUCOSE 95 MG/DL (70-104); POTASSIUM 3.9 MMOL/L (3.5-5.1); SODIUM 139 MMOL/L (135-145); TOTAL CARBON DIOXIDE 24.3 MMOL/L (24-32); TOTAL PROTEIN 7.2 G/DL (6.4-8.2); eGFR 66 ML/MIN
[2021-02-21 17:32] LABS: D-DIMER 0.65 MG/L FEU (0-0.50); PARTIAL THROMBOPLASTIN TIME 31 SECONDS (22-32)
[2021-02-21 17:56] LABS: GIANT PLATELET FEW; LARGE PLATELETS FEW; PLATELET ESTIMATE NORMAL; TOTAL CELLS COUNTED 100
[2021-02-21] MEDS ORDERED: iohexol 350MG/ML 100ml bottle IV ONE (18:40)
[2021-02-21] MEDS ORDERED: CEFP100S9 PO (18:58)
[2021-02-21] MEDS ORDERED: CIPR-202 PO (18:59)
[2021-02-21 19:41] VITALS: BP 111/80
== END 2021-02-21 20:00 | disposition home or self-care (01) ==
LOC: ER 15:50
DX: U07.1 COVID-19 (principal); N39.0 Urinary tract infection, site not specified; R30.9 Painful micturition, unspecified; R11.2 Nausea with vomiting, unspecified; R10.2 Pelvic and perineal pain; J45.909 Unspecified asthma, uncomplicated; K21.9 Gastro-esophageal reflux disease without esophagitis; G89.29 Other chronic pain; F41.9 Anxiety disorder, unspecified; F31.9 Bipolar disorder, unspecified; F12.90 Cannabis use, unspecified, uncomplicated; Z87.442 Personal history of urinary calculi; Z87.440 Personal history of urinary (tract) infections; Z90.710 Acquired absence of both cervix and uterus; Z98.890 Other specified postprocedural states; Z59.00 Homelessness unspecified; Z88.1 Allergy status to other antibiotic agents; Z88.6 Allergy status to analgesic agent; Z88.5 Allergy status to narcotic agent; Z79.2 Long term (current) use of antibiotics
CPT/HCPCS: 71045; 71275; 80053; 81001; 83605; 83880; 84145; 84484; 85007; 85025; 85379; 85610; 85730; 87040; 87077; 87088; 87186; 87635; 93005; 99285; C9803; Q9967

== ENCOUNTER 2021-07-03 15:21 | Emergency (ER) | payer MEDICAID ==
[~2021-07-03] VITALS: Ht 149.9 cm; Wt 72.0 kg
[2021-07-03 15:35] VITALS: BP 112/87
[2021-07-03 16:06] LABS: CLARITY,URINE CLOUDY (Clear); COLOR,URINE YELLOW (Yellow); GLUCOSE, URINE NEGATIVE (Neg); KETONES,URINE TRACE mg/dl (Neg); LEUKOCYTE ESTERASE ,URINE MODERATE (Neg); NITRITES, URINE NEGATIVE (Neg); OCCULT BLOOD,URINE LARGE (Neg); PROTEIN,URINE 100 mg/dl (Neg); UROBILINOGEN,URINE 0.2 E.U/dL (0.2-1.0)
[2021-07-03 16:09] LABS: UA COLLECTION TYPE VOIDED
[2021-07-03 16:23] LABS: WBC,URINE TNTC /HPF (0-4)
[2021-07-03 16:24] LABS: BACTERIA,URINE 4+ /HPF (Neg); MUCUS STRANDS MODERATE /LPF (Neg); SQUAMOUS EPITHELIAL CELL,UR MODERATE /LPF (FEW)
[2021-07-03] MEDS ORDERED: phenazopyridine 100mg tablet PO ONE (16:35)
[2021-07-03] MEDS ORDERED: ciprofloxacin 250mg tablet PO ONE (16:35)
[2021-07-03] MEDS ORDERED: PHEN-716 PO (16:39)
[2021-07-03] MEDS ORDERED: CIPR-202 PO (16:39)
[2021-07-03] MEDS ORDERED: ONDA8TAB13 PO (16:42)
== END 2021-07-03 16:57 | disposition home or self-care (01) ==
LOC: ER 15:21
DX: N39.0 Urinary tract infection, site not specified (principal); R30.0 Dysuria; R11.0 Nausea; J45.909 Unspecified asthma, uncomplicated; K21.9 Gastro-esophageal reflux disease without esophagitis; G89.29 Other chronic pain; F41.9 Anxiety disorder, unspecified; F31.9 Bipolar disorder, unspecified; F12.90 Cannabis use, unspecified, uncomplicated; Z87.442 Personal history of urinary calculi; Z87.440 Personal history of urinary (tract) infections; Z90.710 Acquired absence of both cervix and uterus; Z98.890 Other specified postprocedural states; Z59.00 Homelessness unspecified; Z88.1 Allergy status to other antibiotic agents; Z88.6 Allergy status to analgesic agent; Z88.5 Allergy status to narcotic agent; Z79.899 Other long term (current) drug therapy
CPT/HCPCS: 81001; 87077; 87088; 87186; 99283

== ENCOUNTER 2021-07-16 19:14 | Emergency (ER) | payer MEDICAID ==
[~2021-07-16] VITALS: Ht 147.3 cm; Wt 72.7 kg
[~2021-07-16 19:14] MED LIST changes: +CIPR-202 PO; +ONDA8TAB13 PO; +PHEN-716 PO
[2021-07-16 19:52] LABS: BASOPHILS % (AUTO) 0.2 % (0-1); EOSINOPHILS # (AUTO) 0.3 X10'3 (0-0.9); EOSINOPHILS % (AUTO) 3.3 % (0-6); HEMOGLOBIN 12.6 g/dl (12.0-16.0); LYMPHOCYTES # (AUTO) 1.3 X10'3 (1.1-4.8); LYMPHOCYTES % (AUTO) 14.3 % (21-51); MEAN CORPUSCULAR HEMOGLOBIN 27.9 PG (27.0-31.0); MEAN CORPUSCULAR HGB CONC 32.4 g/dL (33.0-36.5); MEAN CORPUSCULAR VOLUME 86.2 FL (78-98); MEAN PLATELET VOLUME 6.9 FL (7.4-10.4); MONOCYTES % (AUTO) 10.7 % (2-12); NEUTROPHILS # (AUTO) 6.6 X10'3 (1.8-7.7); NEUTROPHILS % (AUTO) 71.5 % (42-75); PLATELET COUNT 341 X10'3 (140-440); RED BLOOD COUNT 4.52 X10'6 (4.20-5.60); RED CELL DISTRIBUTION WIDTH 14.9 % (11.5-14.5); WHITE BLOOD COUNT 9.2 X10'3 (4.5-11.0)
[2021-07-16 19:57] LABS: URINE HCG NEGATIVE (NEG)
[2021-07-16 20:04] LABS: CLARITY,URINE CLOUDY (Clear); COLOR,URINE ORANGE (Yellow)
[2021-07-16 20:10] LABS: ALANINE AMINOTRANSFERASE 31 U/L (12-78); ALBUMIN 3.6 G/DL (3.4-5.0); ALBUMIN/GLOBULIN RATIO 0.9 (1.1-1.5); ALKALINE PHOSPHATASE 124 IU/L (46-116); ANION GAP 7 (8-16); ASPARTATE AMINO TRANSFERASE 21 U/L (10-37); BLOOD UREA NITROGEN 27 MG/DL (7-18); CALCIUM 10.5 MG/DL (8.5-10.1); CHLORIDE 104 MMOL/L (99-107); GLUCOSE 102 MG/DL (70-104); LIPASE 86 U/L (73-393); SODIUM 138 MMOL/L (135-145); TOTAL CARBON DIOXIDE 26.8 MMOL/L (24-32); TOTAL PROTEIN 7.4 G/DL (6.4-8.2); eGFR 36 ML/MIN
[2021-07-16 20:21] LABS: UA COLLECTION TYPE VOIDED
[2021-07-16 20:35] LABS: WBC,URINE TNTC /HPF (0-4)
[2021-07-16 20:36] LABS: BACTERIA,URINE 2+ /HPF (Neg); MUCUS STRANDS FEW /LPF (Neg); RBC,URINE 20-50 /HPF (0-2); SQUAMOUS EPITHELIAL CELL,UR FEW /LPF (FEW); WBC CLUMPS,URINE MODERATE /HPF (NEGATIVE)
[2021-07-16] MEDS ORDERED: ketorolac tromethamine 15mg/ml inj. IV ONE ×2 (20:45→23:00)
[2021-07-16] MEDS ORDERED: ondansetron/PF 4mg/2ml inj IV ONE (20:45)
[2021-07-16] MEDS ORDERED: normal saline 1000ML IV soln IV ONE (20:50)
[2021-07-16 21:14] VITALS: BP 133/98
[2021-07-16] MEDS ORDERED: SULF1TAB49 PO ×2 (22:42)
[2021-07-16] MEDS ORDERED: CefTRIAXone/D5W-Rocephin 1gm 50 ML IV ONE (22:45)
[2021-07-16] MEDS ORDERED: HYDR-3965 PO ×2 (23:00→23:11)
--- NOTE | 2021-07-22 10:05 | NUR ---
PT WAS CALLED REGARDING HER VISIT ON 07/16/21, NO ANSWER AND MESSAGE WAS LEFT TO PLEASE RETURN THE CALL. PT RETURNED THE CALL AND STATED THAT SHE IS CURRENTLY ADMITTED IN [facility] AND IS GETTING IV ABX.
== END 2021-07-17 00:09 | disposition admitted as inpatient to this hospital (09) ==
LOC: ER 19:15
DX: N13.30 Unspecified hydronephrosis (principal); N39.0 Urinary tract infection, site not specified; K21.9 Gastro-esophageal reflux disease without esophagitis; J45.909 Unspecified asthma, uncomplicated; G89.29 Other chronic pain; F31.9 Bipolar disorder, unspecified; F12.10 Cannabis abuse, uncomplicated; Z88.1 Allergy status to other antibiotic agents; Z88.8 Allergy status to other drugs, medicaments and biological substances; Z88.6 Allergy status to analgesic agent
CPT/HCPCS: 36415; 74176; 80053; 81001; 81025; 83605; 83690; 84145; 85025; 87040; 87077; 87088; 87186; 96365; 96366; 96375; 96376; 99285; J0696; J1885; J2405; J7030; 96361

== ENCOUNTER 2021-07-20 11:22 | Inpatient (IN) | payer MEDICAID ==
[~2021-07-20] VITALS: Ht 149.9 cm; Wt 80.0 kg
--- NOTE | 2021-07-20 10:15 | NUR ---
pt voiced 80 ml yellow concentrate urine, urine strain no trace of stone noted. Addendum: 07/21/21 at 0159 by Jose Alfredo Gnocalves RN please disregard the note.
[~2021-07-20 11:22] MED LIST changes: +HYDR-3965 PO; +SULF1TAB49 PO
[2021-07-20] MEDS ORDERED: ketorolac trometh inj. 60 MG/2 ML VIAL IM ONE (12:50)
[2021-07-20 12:54] LABS: CLARITY,URINE CLOUDY (Clear); GLUCOSE, URINE NEGATIVE (Neg); KETONES,URINE 15 mg/dl (Neg); LEUKOCYTE ESTERASE ,URINE MODERATE (Neg); NITRITES, URINE POSITIVE (Neg); OCCULT BLOOD,URINE LARGE (Neg); PROTEIN,URINE 100 mg/dl (Neg)
[2021-07-20] MEDS ORDERED: oxyCODONE/APAP 5-325mg tablet PO ONE (13:00)
[2021-07-20 13:02] LABS: UA COLLECTION TYPE VOIDED
[2021-07-20 13:07] LABS: BACTERIA,URINE 1+ /HPF (Neg); COLOR,URINE AMBER (Yellow); MUCUS STRANDS NONE SEEN /LPF (Neg); RBC,URINE 50-100 /HPF (0-2); SQUAMOUS EPITHELIAL CELL,UR FEW /LPF (FEW); WBC CLUMPS,URINE MANY /HPF (NEGATIVE); WBC,URINE TNTC /HPF (0-4)
[2021-07-20 13:28] LABS: BASOPHILS % (AUTO) 0.2 % (0-1); EOSINOPHILS # (AUTO) 0.2 X10'3 (0-0.9); EOSINOPHILS % (AUTO) 2.6 % (0-6); HEMATOCRIT 35.1 % (35.0-45.0); HEMOGLOBIN 11.3 g/dl (12.0-16.0); LYMPHOCYTES % (AUTO) 12.8 % (21-51); MEAN CORPUSCULAR HEMOGLOBIN 27.5 PG (27.0-31.0); MEAN CORPUSCULAR HGB CONC 32.2 g/dL (33.0-36.5); MEAN CORPUSCULAR VOLUME 85.4 FL (78-98); MEAN PLATELET VOLUME 6.6 FL (7.4-10.4); MONOCYTES # (AUTO) 0.9 X10'3 (0-0.9); MONOCYTES % (AUTO) 11.1 % (2-12); NEUTROPHILS % (AUTO) 73.3 % (42-75); PLATELET COUNT 357 X10'3 (140-440); RED BLOOD COUNT 4.11 X10'6 (4.20-5.60); WHITE BLOOD COUNT 8.2 X10'3 (4.5-11.0)
[2021-07-20 13:47] LABS: ALANINE AMINOTRANSFERASE 19 U/L (12-78); ALBUMIN/GLOBULIN RATIO 0.7 (1.1-1.5); ALKALINE PHOSPHATASE 117 IU/L (46-116); ASPARTATE AMINO TRANSFERASE 13 U/L (10-37); BILIRUBIN,TOTAL 0.5 MG/DL (0.1-1.0); BLOOD UREA NITROGEN 24 MG/DL (7-18); BUN/CREATININE RATIO 22.2 (6.6-38.0); CALCIUM 10.1 MG/DL (8.5-10.1); CREATININE 1.08 MG/DL (0.40-0.90); GLUCOSE 99 MG/DL (70-104); TOTAL CARBON DIOXIDE 23.4 MMOL/L (24-32); TOTAL PROTEIN 7.6 G/DL (6.4-8.2); eGFR 53 ML/MIN
[2021-07-20] MEDS ORDERED: CefTRIAXone 2gm/D5W 50ml BAG 50 ML IV ONE (14:30)
[2021-07-20] MEDS ORDERED: morphine 5 MG/ML injection IV ONE (14:50)
[2021-07-20] MEDS ORDERED: morphine 4 MG/ML inj SYRINge IV ONE (15:05)
[2021-07-20] MEDS ORDERED: mag hydrox/Alum hydrox/simeth 30ml oral suspension PO PRN (15:10)
[2021-07-20] MEDS ORDERED: ondansetron/PF 4mg/2ml inj IV PRN (15:10)
[2021-07-20] MEDS ORDERED: magnesium hydroxide 30ml (MOM) UD suspension PO PRN (15:10)
[2021-07-20] MEDS ORDERED: acetaminophen 325mg tablet PO PRN (15:10)
[2021-07-20] MEDS ORDERED: HYDROmorphone/PF 0.2 MG/ML SYRINGE IV PRN (15:10)
[2021-07-20] MEDS: normal saline 1000ml 1,000 ML IV SCH ×2 (15:23→16:37)
--- NOTE | 2021-07-20 16:07 | NUR ---
Patient in room . I have received report from TAISHA JONES, IN ED. and had the opportunity to ask questions and assume patient care.
--- NOTE | 2021-07-20 16:27 | NUR ---
PATIENT ARRIVED, A&O X4, VS STABLE NO REPORTS OF DISCOMFORT
--- NOTE | 2021-07-20 18:22 | NUR ---
Problems reprioritized. Patient report given, questions answered & plan of care reviewed with ALESSANDRA JONES.
--- NOTE | 2021-07-20 18:53 | NUR ---
REPORT RECEIVED FROM TIFFANIE JONES.
[2021-07-20 20:00] VITALS: BP 92/63
[2021-07-20] MEDS: docusate sod 100mg capsule PO SCH (20:46)
[2021-07-20] MEDS: tamsulosin 0.4mg capsule PO SCH (20:47)
[2021-07-20] MEDS: HYDROmorphone inj. 0.5 MG/0.5 ML DISP.SYRIN IV PRN ×4 (20:48→23:50)
[2021-07-20] MEDS ORDERED: tamsulosin 0.4mg capsule PO SCH (21:00)
[2021-07-21] VITALS: BP 106/71
[2021-07-21] MEDS: normal saline 1000ml 1,000 ML IV SCH ×2 (01:46→20:37)
[2021-07-21] MEDS: HYDROmorphone inj. 0.5 MG/0.5 ML DISP.SYRIN IV PRN ×4 (05:17→20:35)
--- NOTE | 2021-07-21 05:30 | NUR ---
Pt voided 400 ml patti urine during the table games shift manager. urine strain done, no stones noted. bladder scan completed, no residual noted.
[2021-07-21 07:00] VITALS: BP 100/71
[2021-07-21] MEDS: docusate sod 100mg capsule PO SCH ×2 (07:05→20:27)
[2021-07-21 07:07] LABS: BASOPHILS % (AUTO) 0.6 % (0-1); EOSINOPHILS # (AUTO) 0.2 X10'3 (0-0.9); EOSINOPHILS % (AUTO) 3.5 % (0-6); HEMATOCRIT 31.8 % (35.0-45.0); HEMOGLOBIN 10.4 g/dl (12.0-16.0); LYMPHOCYTES % (AUTO) 14.4 % (21-51); MEAN CORPUSCULAR HEMOGLOBIN 28.1 PG (27.0-31.0); MEAN CORPUSCULAR HGB CONC 32.7 g/dL (33.0-36.5); MEAN CORPUSCULAR VOLUME 85.8 FL (78-98); MEAN PLATELET VOLUME 6.8 FL (7.4-10.4); MONOCYTES # (AUTO) 0.7 X10'3 (0-0.9); MONOCYTES % (AUTO) 9.7 % (2-12); NEUTROPHILS # (AUTO) 5.2 X10'3 (1.8-7.7); NEUTROPHILS % (AUTO) 71.8 % (42-75); PLATELET COUNT 337 X10'3 (140-440); RED CELL DISTRIBUTION WIDTH 15.3 % (11.5-14.5); WHITE BLOOD COUNT 7.2 X10'3 (4.5-11.0)
--- NOTE | 2021-07-21 07:20 | NUR ---
PAGER ID: [phone] MESSAGE: Keli Jean 356B Says she hasn't slept all night r/t pain. Pain 9/10 pain burning urethra Moaning out and yelling while peeing. Last given .5mg dilaudid 2 hours ago. Nothing else ordered. Can I have more please? Tracy [phone]
[2021-07-21 07:23] LABS: ALBUMIN 2.6 G/DL (3.4-5.0); ANION GAP 3 (8-16); BLOOD UREA NITROGEN 26 MG/DL (7-18); BUN/CREATININE RATIO 25.7 (6.6-38.0); CALCIUM 9.2 MG/DL (8.5-10.1); CHLORIDE 108 MMOL/L (99-107); CREATININE 1.01 MG/DL (0.40-0.90); GLUCOSE 99 MG/DL (70-104); SODIUM 134 MMOL/L (135-145); TOTAL CARBON DIOXIDE 22.9 MMOL/L (24-32); eGFR 57 ML/MIN
[2021-07-21] MEDS ORDERED: CefTRIAXone/D5W-Rocephin 1gm 50 ML IV SCH (08:00)
[2021-07-21 08:53] LABS: POTASSIUM 4.6 MMOL/L (3.3-5.1)
--- NOTE | 2021-07-21 09:21 | NUR ---
Malnutrition consult: Pt admit dx abdominal pain and trouble urinating per EMR. Pt reports losing 2-13 lb and a decreased appetite per RN malnutrition screen. Pt current scaled wt 80kg, w/ hx 70kg scaled wt December 2019 per EMR. Pt has no edema, no muscle weakness, and no muscle/fat wasting noted per EMR. Pt refused first heart healthy meal, pending further PO trends. Pt lacks minimum two malnutrition criteria at this time. Will monitor for nutrient needs this admit. Addendum: 07/21/21 at [address] Amended: Links added. Addendum: 07/21/21 at [address] I have reviewed assessment by chemical engineering intern
[2021-07-21] MEDS ORDERED: ketorolac trometh. 30mg/ml inj. IV ONE (10:25)
[2021-07-21 11:00] VITALS: BP 107/60
--- NOTE | 2021-07-21 11:07 | NUR ---
PAGER ID: [phone] MESSAGE: Keli Jean 356B pt. mag. very. are you going to dc on oral antibiotics so she can go to her scheduled OP procedure with Yared Wednesday? Tracy [phone]
[2021-07-21] MEDS ORDERED: ESTR50GE VG (12:59)
[2021-07-21] MEDS ORDERED: ARIP400S3 IM (12:59)
[2021-07-21] MEDS ORDERED: SULF1TAB45 PO (12:59)
[2021-07-21] MEDS ORDERED: OXYB5TAB16 PO (12:59)
[2021-07-21] MEDS ORDERED: PANT40TA54 PO (12:59)
[2021-07-21] MEDS ORDERED: ESTR42.510 VG (12:59)
[2021-07-21] MEDS ORDERED: HYDR-3965 PO (12:59)
[2021-07-21] MEDS: ampicillin/sulbac 3gm/NS 100ml 100 ML IV SCH ×2 (14:33→20:26)
[2021-07-21 15:34] LABS: ANION GAP 8 (8-16); CHLORIDE 107 MMOL/L (99-107); POTASSIUM 4.6 MMOL/L (3.5-5.1); SODIUM 138 MMOL/L (135-145)
--- NOTE | 2021-07-21 18:12 | NUR ---
GAVE REPORT TO GERMAIN JONES.
--- NOTE | 2021-07-21 18:39 | NUR ---
Patient in room [facility]. I have received report from Tracy JONES and had the opportunity to ask questions and assume patient care.
[2021-07-21] MEDS: tamsulosin 0.4mg capsule PO SCH (20:28)
[2021-07-21] MEDS ORDERED: HYDROmorphone inj. 0.5 MG/0.5 ML DISP.SYRIN IM ONE (23:05)
[2021-07-22] MEDS: ampicillin/sulbac 3gm/NS 100ml 100 ML IV SCH ×2 (05:00→07:44)
[2021-07-22] MEDS: HYDROmorphone inj. 0.5 MG/0.5 ML DISP.SYRIN IV PRN ×2 (05:06→09:12)
[2021-07-22 06:18] LABS: BASOPHILS % (AUTO) 0.5 % (0-1); EOSINOPHILS # (AUTO) 0.2 X10'3 (0-0.9); EOSINOPHILS % (AUTO) 4.1 % (0-6); HEMATOCRIT 27.6 % (35.0-45.0); HEMOGLOBIN 9.1 g/dl (12.0-16.0); LYMPHOCYTES % (AUTO) 19.4 % (21-51); MEAN CORPUSCULAR HEMOGLOBIN 28.2 PG (27.0-31.0); MEAN CORPUSCULAR HGB CONC 33.1 g/dL (33.0-36.5); MEAN CORPUSCULAR VOLUME 85.4 FL (78-98); MEAN PLATELET VOLUME 6.8 FL (7.4-10.4); MONOCYTES # (AUTO) 0.6 X10'3 (0-0.9); MONOCYTES % (AUTO) 11.2 % (2-12); NEUTROPHILS # (AUTO) 3.5 X10'3 (1.8-7.7); NEUTROPHILS % (AUTO) 64.8 % (42-75); PLATELET COUNT 306 X10'3 (140-440); RED BLOOD COUNT 3.23 X10'6 (4.20-5.60); RED CELL DISTRIBUTION WIDTH 15.1 % (11.5-14.5); WHITE BLOOD COUNT 5.3 X10'3 (4.5-11.0)
--- NOTE | 2021-07-22 06:25 | NUR ---
Patient in room [facility]. I have received report from KAREN Veliz and had the opportunity to ask questions and assume patient care.
[2021-07-22 06:37] LABS: ALBUMIN 2.3 G/DL (3.4-5.0); ANION GAP 2 (8-16); BLOOD UREA NITROGEN 17 MG/DL (7-18); BUN/CREATININE RATIO 22.7 (6.6-38.0); CALCIUM 8.8 MG/DL (8.5-10.1); CHLORIDE 110 MMOL/L (99-107); CREATININE 0.75 MG/DL (0.40-0.90); GLUCOSE 92 MG/DL (70-104); POTASSIUM 3.9 MMOL/L (3.5-5.1); SODIUM 139 MMOL/L (135-145); TOTAL CARBON DIOXIDE 27.5 MMOL/L (24-32); eGFR 80 ML/MIN
--- NOTE | 2021-07-22 06:42 | NUR ---
Problems reprioritized. Patient report given, questions answered & plan of care reviewed with ALEX JONES.
[2021-07-22 07:00] VITALS: BP 119/57
[2021-07-22] MEDS: normal saline 1000ml 1,000 ML IV SCH (07:10)
[2021-07-22] MEDS: docusate sod 100mg capsule PO SCH (07:50)
[2021-07-22] MEDS ORDERED: ketorolac trometh. 30mg/ml inj. IV PRN (09:30)
[2021-07-22] MEDS ORDERED: ketorolac tromethamine 15mg/ml inj. IV PRN (09:35)
--- NOTE | 2021-07-22 09:43 | NUR ---
CALLED DR. CLEANING'S OFFICE TO INQUIRE ABOUT PLAN OF CARE FOR THE PATIENT. DR. CLEANING STATED THAT "THE PATIENT NEEDS TO BE DISCHARGED TODAY BEFORE MIDNIGHT SO SHE CAN ATTEND HER SCHEDULED PROCEDURE WITH HIM TOMORROW AT 1600 [facility]." CONVEYED THIS INFORMATION TO THE HOSPITALIST.
[2021-07-22] MEDS ORDERED: AMOX500C2 PO (10:01)
[2021-07-22] MEDS ORDERED: HYDR-3972 PO (10:01)
--- NOTE | 2021-07-22 10:50 | NUR ---
PATIENT DC WITH INSTRUCTIONS UNDERSTANDING OF INSTRUCTIONS AND WITH ALL BELONGINGS IN [facility] ACCOMAPNIED BY NURSING STAFF AND TO PRIVATE VEHICLE TO GO HOME AND F/U WITH DR CLEANING TOMORROW.
--- NOTE | 2021-07-22 11:28 | NUR ---
AT 1045 PRIOR TO PATIENT DEPARTING THE FLOOR I ADMINISTERED TORADOL PRESCRIBED BUT SCANNER ON COMPUTER NOT WORKING.
== END 2021-07-22 10:43 | disposition home or self-care (01) | DRG 463 ==
LOC: ER 11:22 → SUR 3N 15:14
PROVIDERS: ADMIT Family Medicine; ATTEND Family Medicine
DX: N13.6 Pyonephrosis (principal); B95.2 Enterococcus as the cause of diseases classified elsewhere; F31.9 Bipolar disorder, unspecified; G89.4 Chronic pain syndrome; J45.909 Unspecified asthma, uncomplicated; F12.90 Cannabis use, unspecified, uncomplicated; F41.9 Anxiety disorder, unspecified; K21.9 Gastro-esophageal reflux disease without esophagitis; F17.210 Nicotine dependence, cigarettes, uncomplicated; N20.2 Calculus of kidney with calculus of ureter; Z80.3 Family history of malignant neoplasm of breast; Z87.442 Personal history of urinary calculi; Z90.710 Acquired absence of both cervix and uterus; Z98.891 History of uterine scar from previous surgery; Z59.00 Homelessness unspecified; Z88.5 Allergy status to narcotic agent; Z88.8 Allergy status to other drugs, medicaments and biological substances
CPT/HCPCS: 36415; 80048; 80053; 81001; 84145; 85025; 96365; 96372; 99285; G0378; J0295; J0696; J1170; J1885; J2270; J7030

== ENCOUNTER 2022-01-03 01:33 | Emergency (ER) | payer MEDICAID ==
[~2022-01-03] VITALS: Ht 149.9 cm; Wt 68.2 kg
[~2022-01-03 01:33] MED LIST changes: +ARIP400S3 IM; -CIPR-202 PO; -CYCL-1 PO; +ESTR42.510 VG; -ONDA8TAB13 PO; +OXYB5TAB16 PO; +PANT40TA54 PO; -PHEN-716 PO; -SULF1TAB49 PO
[2022-01-03 01:40] VITALS: BP 123/84
== END 2022-01-03 07:43 | disposition left against medical advice (07) ==
LOC: ER 01:33
DX: H92.02 Otalgia, left ear (principal); Z53.21 Procedure and treatment not carried out due to patient leaving prior to being seen by health care provider

== ENCOUNTER 2022-02-21 12:39 | Emergency (ER) | payer MEDICAID ==
[~2022-02-21] VITALS: Ht 149.9 cm; Wt 61.4 kg
[2022-02-21 13:01] VITALS: BP 119/84
[2022-02-21 13:28] LABS: BASOPHILS % (AUTO) 0.5 % (0-1); EOSINOPHILS # (AUTO) 0.1 X10'3 (0-0.9); HEMATOCRIT 40.8 % (35.0-45.0); HEMOGLOBIN 13.4 g/dl (12.0-16.0); LYMPHOCYTES # (AUTO) 1.5 X10'3 (1.1-4.8); LYMPHOCYTES % (AUTO) 29.4 % (21-51); MEAN CORPUSCULAR HEMOGLOBIN 27.4 PG (27.0-31.0); MEAN CORPUSCULAR HGB CONC 32.8 g/dL (33.0-36.5); MEAN CORPUSCULAR VOLUME 83.6 FL (78-98); MEAN PLATELET VOLUME 7.3 FL (7.4-10.4); MONOCYTES # (AUTO) 0.5 X10'3 (0-0.9); MONOCYTES % (AUTO) 8.7 % (2-12); NEUTROPHILS # (AUTO) 3.1 X10'3 (1.8-7.7); NEUTROPHILS % (AUTO) 59.4 % (42-75); PLATELET COUNT 278 X10'3 (140-440); RED BLOOD COUNT 4.89 X10'6 (4.20-5.60); RED CELL DISTRIBUTION WIDTH 16.9 % (11.5-14.5); WHITE BLOOD COUNT 5.2 X10'3 (4.5-11.0)
[2022-02-21 13:35] LABS: ALANINE AMINOTRANSFERASE 32 U/L (12-78); ALBUMIN 3.9 G/DL (3.4-5.0); ALBUMIN/GLOBULIN RATIO 1.2 (1.1-1.5); ALKALINE PHOSPHATASE 120 IU/L (46-116); ANION GAP 8 (8-16); ASPARTATE AMINO TRANSFERASE 17 U/L (10-37); BILIRUBIN,TOTAL 0.3 MG/DL (0.1-1.0); BLOOD UREA NITROGEN 17 MG/DL (7-18); BUN/CREATININE RATIO 16.3 (6.6-38.0); CALCIUM 10.1 MG/DL (8.5-10.1); CHLORIDE 104 MMOL/L (99-107); CREATININE 1.04 MG/DL (0.40-0.90); GLUCOSE 124 MG/DL (70-104); LIPASE 96 U/L (73-393); POTASSIUM 4.1 MMOL/L (3.5-5.1); SODIUM 142 MMOL/L (135-145); TOTAL CARBON DIOXIDE 29.8 MMOL/L (24-32); TOTAL PROTEIN 7.2 G/DL (6.4-8.2); eGFR 55 ML/MIN
[2022-02-21] MEDS ORDERED: HYDROcodone/acetaminophen 10/325mg tab PO ONE (16:05)
[2022-02-21] MEDS ORDERED: ketorolac trometh. 30mg/ml inj. IV ONE (16:05)
[2022-02-21] MEDS ORDERED: ketorolac trometh. 30mg/ml inj. IM ONE (16:55)
[2022-02-21 16:58] LABS: CLARITY,URINE CLOUDY (Clear); COLOR,URINE YELLOW (Yellow); GLUCOSE, URINE NEGATIVE (Neg); KETONES,URINE NEGATIVE (Neg); LEUKOCYTE ESTERASE ,URINE TRACE (Neg); NITRITES, URINE NEGATIVE (Neg); OCCULT BLOOD,URINE LARGE (Neg); PROTEIN,URINE TRACE mg/dl (Neg); UROBILINOGEN,URINE 0.2 E.U/dL (0.2-1.0)
[2022-02-21 17:00] LABS: URINE HCG NEGATIVE (NEG)
[2022-02-21 17:01] LABS: UA COLLECTION TYPE CLN CATCH MIDSTREAM
[2022-02-21 17:05] LABS: BACTERIA,URINE 2+ /HPF (Neg); MUCUS STRANDS MANY /LPF (Neg); RBC,URINE TNTC /HPF (0-2); SQUAMOUS EPITHELIAL CELL,UR MODERATE /LPF (FEW)
[2022-02-21 17:06] LABS: CAL OXALATE CRYSTALS FEW /HPF (NEGATIVE)
[2022-02-21] MEDS ORDERED: HYDR-3972 PO (17:31)
== END 2022-02-21 18:08 | disposition home or self-care (01) ==
LOC: ER 12:39
DX: N20.0 Calculus of kidney (principal); K21.9 Gastro-esophageal reflux disease without esophagitis; J45.909 Unspecified asthma, uncomplicated; F31.9 Bipolar disorder, unspecified; G89.29 Other chronic pain; F12.10 Cannabis abuse, uncomplicated; Z59.00 Homelessness unspecified; Z88.8 Allergy status to other drugs, medicaments and biological substances; Z88.6 Allergy status to analgesic agent; Z88.5 Allergy status to narcotic agent; Z79.899 Other long term (current) drug therapy; Z79.1 Long term (current) use of non-steroidal anti-inflammatories (NSAID)
CPT/HCPCS: 36415; 74176; 80053; 81001; 81025; 83690; 85025; 87088; 96372; 99284; J1885

== ENCOUNTER 2024-01-04 14:34 | Emergency (ER) | payer MEDICAID ==
[~2024-01-04] VITALS: Ht 149.9 cm; Wt 73.2 kg
[~2024-01-04 14:34] MED LIST changes: -OXYB5TAB16 PO; +OXYB5TAB21 PO
[2024-01-04 16:13] VITALS: BP 168/79; PULSE 98; RESP 16; TEMP 97.8; O2SAT 97
== END 2024-01-04 16:16 | disposition home or self-care (01) ==
LOC: ER 14:35
DX: S90.32XA Contusion of left foot, initial encounter (principal); S90.31XA Contusion of right foot, initial encounter; J45.909 Unspecified asthma, uncomplicated; K21.9 Gastro-esophageal reflux disease without esophagitis; F41.9 Anxiety disorder, unspecified; F32.A Depression, unspecified; F12.90 Cannabis use, unspecified, uncomplicated; Z88.1 Allergy status to other antibiotic agents; Z88.5 Allergy status to narcotic agent; Z79.899 Other long term (current) drug therapy; Z98.890 Other specified postprocedural states; Z90.710 Acquired absence of both cervix and uterus; X58.XXXA Exposure to other specified factors, initial encounter; Y93.89 Activity, other specified; Y92.89 Other specified places as the place of occurrence of the external cause; Y99.8 Other external cause status
CPT/HCPCS: 73630; 99283